=== PATIENT | female | born 1940 | race Caucasian/White ===

== ENCOUNTER 2016-11-03 14:04 | Inpatient (IN) | payer MEDICARE, OTHER ==
[~2016-11-03] VITALS: Ht 162.6 cm; Wt 83.6 kg
[2016-11-03 14:06] VITALS: BP 163/94; PULSE 92; RESP 24; TEMP 97.7; O2SAT 97
[2016-11-03] MEDS ORDERED: MORPHINE SULFATE 4 MG/ML INJ IM ONE (14:30)
--- NOTE | 2016-11-03 14:40 | PD ---
HPI Chief Complaint: Musculoskeletal Complaint Time Seen by Provider: 14:35 Travel History International Travel<30 days: No Contact w/Intl Traveler<30days: No Traveled to known affect area: No History of Present Illness HPI Patient is a 76-year-old female presenting to emergency for evaluation after she sustained a mechanical fall, injuring her face. Patient was playing miniature golf when she tripped on a curb. Patient states that she face planted , she did not attempt to brace herself during the fall with her hands. She complains of face pain, neck pain and head pain. She reports her pain as a 6 out of 10 and describes it as throbbing and aching. Patient also reports nosebleed and a cut on her inner lower lip. She denies any loss of consciousness, the fall was witnessed by her who is present. Patient does take 81 mg of aspirin daily. PFSH Past Medical History Hx Anticoagulant Therapy: Yes (ASA) Hypertension: Yes Social History Alcohol Use: No Tobacco Use: No Substance Use: No Allergies-Medications (Allergen,Severity, Reaction): Coded Allergies: Adhesives (Verified Allergy, Intermediate, RASH, 11/03/16) Penicillin (Verified Allergy, Intermediate, RASH, 11/03/16) Percocet (Verified Allergy, Unknown, NAUSEA, 11/03/16) Review of Systems Except as stated in HPI: all other systems reviewed are Neg Eyes: No: Blurred Vision, Visual changes HENT: Positive: Headaches, Nosebleed, Neck Pain Cardiovascular: No: Chest Pain or Discomfort Respiratory: No: Shortness of Breath Gastrointestinal: No: Nausea, Abdominal Pain Musculoskeletal: No: Myalgias Neurologic: No: Weakness, Dizziness, Syncope, Focal Abnormalities, Change in Mentation, Sensory Disturbance Physical Exam Narrative GENERAL: Developed, well-nourished, alert elderly female. Appears uncomfortable , in no acute distress. SKIN: Focused skin assessment warm/dry. Over the bridge of the nose bilaterally and over right eye lid. Ecchymosis on right proximal humerus, left breast. HEAD: Atraumatic. Normocephalic. EYES: Pupils equal and round. No scleral icterus. No injection or drainage. Lids are intact, no photophobia, no pain with movement of eyes. ENT: Positive nasal bleeding worse in the right and the left, no discharge. Mucous membranes pink and moist. No hematoma noted in her stools. NECK: Trachea midline. No JVD. CARDIOVASCULAR: Regular rate and rhythm. No murmur appreciated. RESPIRATORY: No accessory muscle use. Clear to auscultation. Breath sounds equal bilaterally. GASTROINTESTINAL: Abdomen soft, non-tender, nondistended. Hepatic and splenic margins not palpable. MUSCULOSKELETAL: No obvious deformities. No clubbing. No cyanosis. No edema. NEUROLOGICAL: Awake and alert. No obvious cranial nerve deficits. Motor grossly within normal limits. Normal speech. PSYCHIATRIC: Appropriate mood and affect; insight and judgment normal. Data Data Last Documented VS Vital Signs Date Time Temp Pulse Resp B/P Pulse Ox O2 Delivery O2 Flow Rate FiO2 11/03/16 14:06 97.7 92 24 163/[address] Brain W/O Iv Contrast(Rout) (11/03/16 ) Ct Facial Bones W/O Iv Cont (11/03/16 ) Morphine Inj (Morphine Inj) (11/03/16 14:30) Ct Cerv Spine W/O Contrast (11/03/16 ) Ice/Cold Pack (11/03/16 14:25) Ondansetron Inj (Zofran Inj) (11/03/16 15:30) Sodium Chlorid 0.9% 500 Ml Inj (Ns 500 M (11/03/16 15:30) Complete Blood Count With Diff (11/03/16 15:23) Basic Metabolic Panel (Bmp) (11/03/16 15:23) Act Partial Throm Time (Ptt) (11/03/16 15:23) Prothrombin Time / Inr (Pt) (11/03/16 15:23) Iv Access Insert/Monitor (11/03/16 15:23) Humerus (Min 2vws) (11/03/16 ) Chest, Single Ap (11/03/16 ) Admit Order (Ed Use Only) (11/03/16 15:51) Labs Laboratory Tests Test 11/03/16 15:30 White Blood Count 11.6 TH/MM3 Red Blood Count 3.55 MIL/MM3 Hemoglobin 11.6 GM/DL Hematocrit 35.7 % Mean Corpuscular Volume 100.6 FL Mean Corpuscular Hemoglobin 32.7 PG Mean Corpuscular Hemoglobin 32.5 % Concent Red Cell Distribution Width 12.8 % Platelet Count 182 TH/MM3 Mean Platelet Volume 8.7 FL Neutrophils (%) (Auto) 75.3 % Lymphocytes (%) (Auto) 15.5 % Monocytes (%) (Auto) 7.4 % Eosinophils (%) (Auto) 1.3 % Basophils (%) (Auto) 0.5 % Neutrophils # (Auto) 8.7 TH/MM3 Lymphocytes # (Auto) 1.8 TH/MM3 Monocytes # (Auto) 0.9 TH/MM3 Eosinophils # (Auto) 0.2 TH/MM3 Basophils # (Auto) 0.1 TH/MM3 CBC Comment DIFF FINAL Differential Comment Prothrombin Time 11.5 SEC Prothromb Time International 1.0 RATIO Ratio Activated Partial 22.5 SEC Thromboplast Time Sodium Level 139 MEQ/L Potassium Level 3.7 MEQ/L Chloride Level 103 MEQ/L Carbon Dioxide Level 25.7 MEQ/L Anion Gap 10 MEQ/L Blood Urea Nitrogen 22 MG/DL Creatinine 1.07 MG/DL Estimat Glomerular Filtration 50 ML/MIN Rate Random Glucose 156 MG/DL Calcium Level 8.8 MG/DL MDM Medical Decision Making Medical Screen Exam Complete: Yes Emergency Medical Condition: Yes Interpretation(s) Last Impressions Maxillofacial CT 11/03/16 0000 Signed Impressions: Service Date/Time: Thursday, November 03, 2016 14:54 - CONCLUSION: 1. Multifocal areas of subtle lytic bone destruction in the inferior calvarium and also the sphenoid bone and clivus. Differential diagnosis includes myeloma and metastatic disease. 2. Multiple facial bone fractures including nasal septum, bilateral nasal bones , bilateral maxillary sinuses with hemorrhage in both maxillary sinuses. 3. Abnormal soft tissue and calcification in the inferomedial left orbit. Differential diagnosis includes a focal area of hemorrhage or possibly chronic nasolacrimal duct disease. 4. Mucosal thickening in ethmoid air cells. Hypoplastic frontal sinus. Sphenoid sinus unremarkable. 5. Chronic appearing deformity of the left mandibular condyle possibly related to prior trauma or avascular necrosis. Casper Guzman MD Head CT 11/03/16 0000 Signed Impressions: Service Date/Time: Thursday, November 03, 2016 14:54 - CONCLUSION: 1. Small hemorrhagic contusion in the right frontal lobe associated with minimal subarachnoid hemorrhage and interhemispheric hemorrhage in the frontal region. There is a suspected 1 cm hemorrhage in the left basal ganglia in addition to dense basal ganglia calcifications. There is no mass effect or midline shift. 2. Anterior facial bone fractures with hemorrhage in the maxillary sinuses. See facial bone CT report. Casper Guzman MD Cervical Spine CT 11/03/16 0000 Signed Impressions: Service Date/Time: Thursday, November 03, 2016 14:54 - CONCLUSION: 1. Fracture through the base of the dens of C2 with about 4 mm of posterior and inferior displacement of the posterior cortex. No significant canal stenosis. 2. Hairline nondisplaced fracture right posterior arch of C1. 3. 1 cm soft tissue swelling anterior to the dens. Degenerative disc disease with minimal degenerative anterolisthesis of C4 on C5 and C6 on C7. Casper Guzman MD Vital Signs Date Time Temp Pulse Resp B/P Pulse Ox O2 Delivery O2 Flow Rate FiO2 11/03/16 14:06 97.7 92 24 163/94 97 Room Air Differential Diagnosis Contusion versus fracture versus sprain versus strain versus hemorrhage versus hematoma versus other Narrative Course 76-year-old female presenting to emergency for evaluation of facial contusions after sustaining a mechanical fall that occurred just prior to arrival. Patient 's vital signs are stable, patient is alert and oriented with no neurological deficits noted on exam. Imaging ordered and pending, pain medication order per my to any physician. IV access initiated, telemetry monitoring and continuous pulse oximetry placed. CT scan of the cervical spine shows fracture to the base of the dens of C2 with about 4 mm posterior and inferior displacement of the posterior cortex, no significant canal stenosis. Hairline nondisplaced fracture right posterior arch of C1. 1 cm soft tissue swelling anterior to the dens as well as degenerative disc disease with minimal direct degenerative anterolisthesis of C4 on C5 and C6 on C7. Upon notification of these fractures patient was emergently placed in a Adriana collar. CT scan of the brain small hemorrhagic contusion in the right frontal lobe associated with minimal subarachnoid hemorrhage and anterior hemispheric hemorrhage in the frontal region. There is a suspected 1 cm hemorrhage in the left basal ganglia in addition to dense basal ganglia calcifications. There is no mass effect or midline shift. Anterior facial bone fractures with hemorrhage. CT of the facial bones shows multifocal areas of subtle lytic bone destruction in the inferior calvarium and also the sphenoid bone and currently this. Differential includes myeloma and metastatic disease. Discussed with Dr. Salinas, trauma surgeon. He requested patient be admitted to his service in placed in [facility]. Discussed findings with Dr. Green who recommended patient be placed in [place] J collar and an MRI of the cervical spine. Orders placed. Discussed findings with Dr. Cruz. He recommended Nose precautions relayed to patient, no blowing her nose, she is advised just to tab, she was advised not to hold back or sneezes. MRI Results are pending. Diagnosis Primary Impression: Acute intracranial hemorrhage Additional Impressions: Facial bone fracture Qualified Code: S02.92XA - Closed fracture of facial bone, unspecified facial bone, initial encounter C2 cervical fracture Qualified Code: S12.100A - Closed displaced fracture of second cervical vertebra, unspecified fracture morphology, initial encounter Admitting Information Admitting Physician Requests: Admit Condition: Serious Arabella Shelleyfrederick MANSFIELD November 03, 2016 14:39
--- NOTE | 2016-11-03 15:23 | RADRPT ---
EXAM DATE/TIME: 11/03/2016 14:54 [facility] COMPARISON: No previous studies available for comparison. INDICATIONS : Pain after fall on face. RADIATION DOSE: 30.85 CTDIvol (mGy) MEDICAL HISTORY : Hypertension. SURGICAL HISTORY : None. ENCOUNTER: Initial ACUITY: 1 day PAIN SCALE: 5/10 LOCATION: cranial TECHNIQUE: Multiple contiguous axial images were obtained of the head. Using automated exposure control and adj ustment of the mA and/or kV according to patient size, radiation dose was kept as low as reasonably a chievable to obtain optimal diagnostic quality images. FINDINGS: There are anterior facial bone fractures, soft tissue swelling and hemorrhage in the paranasal sinuse s. See facial bone CT report. Within the brain there is a small area of hemorrhagic contusion in the right frontal lobe, mostly junior ear in appearance. There is also trace subdural hemorrhage in the interhemispheric region and probabl e trace subarachnoid hemorrhage as well. There are basal ganglia calcifications with an additional 1 cm hemorrhage in the left basal ganglia suspected posterior to the area of calcification. There is no mass effect or shift. No hydrocephalus. CONCLUSION: 1. Small hemorrhagic contusion in the right frontal lobe associated with minimal subarachnoid hemorrh age and interhemispheric hemorrhage in the frontal region. There is a suspected 1 cm hemorrhage in th e left basal ganglia in addition to dense basal ganglia calcifications. There is no mass effect or mi dline shift. 2. Anterior facial bone fractures with hemorrhage in the maxillary sinuses. See facial bone CT report . Casper Guzman MD on November 03, 2016 at 15:16 Board Certified Radiologist. This report was verified electronically.
--- NOTE | 2016-11-03 15:29 | RADRPT ---
EXAM DATE/TIME: 11/03/2016 14:54 [facility] COMPARISON: No previous studies available for comparison. INDICATIONS : Pain after fall on face. RADIATION DOSE: 19.61 CTDIvol (mGy) MEDICAL HISTORY : Hypertension. SURGICAL HISTORY : None. ENCOUNTER: Initial ACUITY: 1 day PAIN SCALE: 6/10 LOCATION: Bilateral neck TECHNIQUE: Volumetric scanning of the cervical spine was performed. Multiplanar reconstructions in the sagittal, coronal and oblique axial planes were performed. Using automated exposure control and adjustment o f the mA and/or kV according to patient size, radiation dose was kept as low as reasonably achievable to obtain optimal diagnostic quality images. FINDINGS: There is a fracture through the base of the dens with about 4.5 mm of inferior and posterior displace ment of the posterior cortex. No there's a questionable hairline fracture through the posterior arch of C1 on the right side. There is a minimal degenerative anterolisthesis of C4 on C5 and C6 on C7. No significant bony canal s tenosis. There is about 1 cm of soft tissue swelling anterior to the C2 fracture. CONCLUSION: 1. Fracture through the base of the dens of C2 with about 4 mm of posterior and inferior displacement of the posterior cortex. No significant canal stenosis. 2. Hairline nondisplaced fracture right posterior arch of C1. 3. 1 cm soft tissue swelling anterior to the dens. Degenerative disc disease with minimal degenerative anterolisthesis of C4 on C5 and C6 on C7. Casper Guzman MD on November 03, 2016 at 15:21 Board Certified Radiologist. This report was verified electronically.
[2016-11-03] MEDS ORDERED: ONDANSETRON HCL 4 MG/2 ML VIAL IV PUSH ONE (15:30)
[2016-11-03] MEDS ORDERED: SODIUM CHLORID 0.9% 500 ML INJ 500 ML IV ONE (15:30)
--- NOTE | 2016-11-03 15:37 | RADRPT ---
EXAM DATE/TIME: 11/03/2016 14:54 [facility] COMPARISON: No previous studies available for comparison. INDICATIONS : Pain after fall on face. RADIATION DOSE: 58.56 CTDIvol (mGy) MEDICAL HISTORY : None SURGICAL HISTORY : None. ENCOUNTER: Initial ACUITY: 1 day PAIN SCORE: 8/10 LOCATION: Bilateral facial TECHNIQUE: Volumetric scanning of the facial bones was performed. Using automated exposure control and adjustme nt of the mA and/or kV according to patient size, radiation dose was kept as low as reasonably achiev able to obtain optimal diagnostic quality images. FINDINGS: There are subtle lytic bony changes in the calvarium or at also at the base of the skull involving th e sphenoid bone and to a lesser extent other bony structures including the clivus. Differential diagn osis includes metastatic disease or myeloma. There are mildly displaced bilateral nasal bone fractures. They also mildly displaced fractures throu gh the lateral wall of right maxillary sinus and hairline fracture inferior left maxillary sinus with hemorrhage in both maxillary sinuses. There is an approximately 4 mm calcification in the inferior medial left orbit with similar surroundi ng soft tissue that could represent a small amount of hemorrhage or possibly occlusion of the left na solacrimal duct. There is some bone lysis along the posterior aspect of the left nasolacrimal duct. Mild displaced fracture noted of the nasal septum. CONCLUSION: 1. Multifocal areas of subtle lytic bone destruction in the inferior calvarium and also the sphenoid bone and clivus. Differential diagnosis includes myeloma and metastatic disease. 2. Multiple facial bone fractures including nasal septum, bilateral nasal bones, bilateral maxillary sinuses with hemorrhage in both maxillary sinuses. 3. Abnormal soft tissue and calcification in the inferomedial left orbit. Differential diagnosis incl udes a focal area of hemorrhage or possibly chronic nasolacrimal duct disease. 4. Mucosal thickening in ethmoid air cells. Hypoplastic frontal sinus. Sphenoid sinus unremarkable. 5. Chronic appearing deformity of the left mandibular condyle possibly related to prior trauma or bradford scular necrosis. Casper Guzman MD on November 03, 2016 at 15:29 Board Certified Radiologist. This report was verified electronically.
[2016-11-03 16:18] LABS: AUTOMATED NEUTROPHIL # 8.7 TH/MM3 (1.8-7.7); BASOPHIL # 0.1 TH/MM3 (0-0.2); BASOPHIL % 0.5 % (0.0-2.0); EOSINOPHIL # 0.2 TH/MM3 (0-0.4); EOSINOPHIL % 1.3 % (0.0-4.0); HEMATOCRIT 35.7 % (35.0-46.0); HEMO FLAGS DIFF FINAL; LYMPH % 15.5 % (9.0-44.0); LYMPHOCYTE # 1.8 TH/MM3 (1.0-4.8); MEAN CELL VOLUME 100.6 FL (80.0-100.0); MEAN CORPUSCULAR HEMOGLOBIN 32.7 PG (27.0-34.0); MEAN CORPUSCULAR HGB CONC 32.5 % (32.0-36.0); MONO % 7.4 % (0.0-8.0); NEUT % 75.3 % (16.0-70.0); PLATELET COUNT 182 TH/MM3 (150-450); RED BLOOD COUNT 3.55 MIL/MM3 (4.00-5.30); RED CELL DISTRIBUTION WIDTH 12.8 % (11.6-17.2); WHITE BLOOD COUNT 11.6 TH/MM3 (4.0-11.0)
--- NOTE | 2016-11-03 16:20 | PD ---
Physical Exam Date Seen by Provider: November 03, 2016 Time Seen by Provider: 15:00 Narrative I, Dr. Root, have reviewed the advance practice practitioner's documentation and am in agreement, met with the patient face to face, made the diagnosis, and the medical decision making was done by me. *My assessment and Findings: Patient seen and evaluated with PA, please see PA note for further details. She had tripped and fallen on a mini golf course and went face first, no loss of consciousness has significant bruising over her face. She was placed in a c-collar in the ER. CAT scans were ordered for further evaluation. Patient is alert, awake, oriented 3. She is conversant and is moving all 4 extremities. She walked in. Last [address] 11/03/16 Signed Impressions: Service Date/Time: Thursday, November 03, 2016 14:54 - CONCLUSION: 1. Multifocal areas of subtle lytic bone destruction in the inferior calvarium and also the sphenoid bone and clivus. Differential diagnosis includes myeloma and metastatic disease. 2. Multiple facial bone fractures including nasal septum, bilateral nasal bones , bilateral maxillary sinuses with hemorrhage in both maxillary sinuses. 3. Abnormal soft tissue and calcification in the inferomedial left orbit. Differential diagnosis includes a focal area of hemorrhage or possibly chronic nasolacrimal duct disease. 4. Mucosal thickening in ethmoid air cells. Hypoplastic frontal sinus. Sphenoid sinus unremarkable. 5. Chronic appearing deformity of the left mandibular condyle possibly related to prior trauma or avascular necrosis. Casper Guzman MD Head CT 11/03/16 Signed Impressions: Service Date/Time: Thursday, November 03, 2016 14:54 - CONCLUSION: 1. Small hemorrhagic contusion in the right frontal lobe associated with minimal subarachnoid hemorrhage and interhemispheric hemorrhage in the frontal region. There is a suspected 1 cm hemorrhage in the left basal ganglia in addition to dense basal ganglia calcifications. There is no mass effect or midline shift. 2. Anterior facial bone fractures with hemorrhage in the maxillary sinuses. See facial bone CT report. Casper Guzman MD Cervical Spine CT 11/03/16 Signed Impressions: Service Date/Time: Thursday, November 03, 2016 14:54 - CONCLUSION: 1. Fracture through the base of the dens of C2 with about 4 mm of posterior and inferior displacement of the posterior cortex. No significant canal stenosis. 2. Hairline nondisplaced fracture right posterior arch of C1. 3. 1 cm soft tissue swelling anterior to the dens. Degenerative disc disease with minimal degenerative anterolisthesis of C4 on C5 and C6 on C7. Casper Guzman MD Patient has significant C-spine fracture in C1 and C2 with some mild displacement. CTA of the brain shows acute intracranial bleeding. See the facial bones shows several facial bone fractures. Case was discussed with Dr. Green who came in to see the patient in the ER and has requested a [place] J collar and consult to him with ICU placement. Case was discussed with Dr. Salinas who agrees to admit the patient ISC. Case was also discussed with Dr. Cruz who plans to see the patient as well regarding facial fractures. Aggregate critical care time was 25 minutes. Time to perform other separately billable procedures was not included in the critical care time. My time did not include minutes spent treating any other patients simultaneously or on activities that did not directly contribute to the patient's treatment. The services I provided to this patient were to treat and/or prevent clinically significant deterioration that could result in: Worsening intracranial bleeding , disability, I provided critical care services requiring my management, as noted below: Chart data review, documentation time, medication orders and management, vital sign assessments/reviewing monitor data, ordering and reviewing lab tests, ordering and interpreting/reviewing x-rays and diagnostic studies, care of the patient and discussion of the patient with the admitting physicians. Data Data Last Documented VS Vital Signs Date Time Temp Pulse Resp B/P Pulse Ox O2 Delivery O2 Flow Rate FiO2 11/03/16 14:06 97.7 92 24 163/[address] Brain W/O Iv Contrast(Rout) (11/03/16 ) Ct Facial Bones W/O Iv Cont (11/03/16 ) Morphine Inj (Morphine Inj) (11/03/16 14:30) Ct Cerv Spine W/O Contrast (11/03/16 ) Ice/Cold Pack (11/03/16 14:25) Ondansetron Inj (Zofran Inj) (11/03/16 15:30) Sodium Chlorid 0.9% 500 Ml Inj (Ns 500 M (11/03/16 15:30) Complete Blood Count With Diff (11/03/16 15:23) Basic Metabolic Panel (Bmp) (11/03/16 15:23) Act Partial Throm Time (Ptt) (11/03/16 15:23) Prothrombin Time / Inr (Pt) (11/03/16 15:23) Iv Access Insert/Monitor (11/03/16 15:23) Humerus (Min 2vws) (11/03/16 ) Chest, Single Ap (11/03/16 ) Admit Order (Ed Use Only) (11/03/16 15:51) MDM Medical Record Reviewed: Yes Supervised Visit with RITA: Yes Diagnosis Primary Impression: Acute intracranial hemorrhage Additional Impressions: C2 cervical fracture Facial bone fracture Admitting Information Admitting Physician Requests: Admit Naeem Root MD November 03, 2016 16:20
[2016-11-03 16:30] LABS: APTT (PATIENT) 22.5 SEC (24.3-30.1); PROTHROMBIN TIME - PATIENT 11.5 SEC (9.8-11.6)
[2016-11-03 16:50] LABS: BICARBONATE 25.7 MEQ/L (21.0-32.0); POTASSIUM 3.7 MEQ/L (3.5-5.1)
[2016-11-03] MEDS ORDERED: MISCELLANEOUS NURSING INFORMATION XX SCH (17:00)
[2016-11-03] MEDS ORDERED: SODIUM CHLORIDE 0.9% FLUSH 10 ML FLUSH IV FLUSH PRN (17:00)
[2016-11-03] MEDS ORDERED: MAGNESIUM HYDROXIDE SUSP 30 ML CUP PO PRN (17:00)
[2016-11-03] MEDS: SODIUM CHLOR 0.9% 1000 ML INJ 1,000 ML IV SCH (17:00)
[2016-11-03] MEDS ORDERED: CHLORHEXIDINE GLUCONATE 2 % 1 PACK (2 CLOTHS) TOP PRN (17:00)
--- NOTE | 2016-11-03 17:01 | PD.CONS ---
[facility] Service Neurosurg Consult Requested By Dr Landry Reason for Consult C21 fracture Primary Care Physician Non-Staff History of Present Illness this is a 76-year-old female brought to [place] emergency for evaluation after she sustained a fall, injuring her face. Apparently she was playing mini golf when she tripped on a curb. She face planted, during her fall she did not attempt to brace herself during the fall with her hands. No loss of consciousness. No seizure activity. No tongue biting. No incontinence of stool or urine. She developed immediate onset of neck pain. She now reports face pain, neck pain and head pain 7/10. She reports her pain as a 7 out of 10 and describes it as throbbing and aching. Patient also reports nosebleed and a cut on her inner lower lip. The fall was witnessed by her who is present. Patient does take 81 mg of aspirin daily. She denies any focal motor weakness. She denies any sensory loss. No incontinence of stool or urine. CT of the brain showed evidence of cerebral contusions, a possible basal ganglia hemorrhage, craniofacial fractures. CT of the cervical spine showed a C2 and C1 fracture. Neurosurgical consultation was requested Review of Systems Constitutional: DENIES: Diaphoretic episodes, Fatigue, Fever, Weight gain, Weight loss, Chills, Dizziness, Change in appetite, Night Sweats Endocrine: DENIES: Abnorml menstrual pattern, Heat/cold intolerance, Polydipsia , Polyuria, Polyphagia Eyes: COMPLAINS OF: Eye inflammation, DENIES: Blurred vision, Diplopia, Eye pain, Vision loss, Photosensitivity, Double Vision Ears, nose, mouth, throat: DENIES: Tinnitus, Hearing loss, Vertigo, Nasal discharge, Oral lesions, Throat pain, Hoarseness, Ear Pain, Running Nose, Epistaxis, Sinus Pain, Toothache, Odynophagia Respiratory: DENIES: Apneas, Cough, Snoring, Wheezing, Hemoptysis, Sputum production, Shortness of breath Cardiovascular: DENIES: Chest pain, Palpitations, Syncope, Dyspnea on Exertion , PND, Lower Extremity Edema, Orthopnea, Claudication Gastrointestinal: DENIES: Abdominal pain, Black stools, Bloody stools, Constipation, Diarrhea, Nausea, Vomiting, Difficulty Swallowing, Anorexia Genitourinary: DENIES: Abnormal vaginal bleeding, Dysmenorrhea, Dyspareunia, Sexual dysfunction, Urinary frequency, Urinary incontinence, Urgency, Hematuria , Dysuria, Nocturia, Vaginal discharge Musculoskeletal: COMPLAINS OF: Neck pain, DENIES: Joint pain, Muscle aches, Stiffness, Joint Swelling, Back pain Integumentary: DENIES: Abnormal pigmentation, Pruritus, Rash, Nail changes, Breast masses, Breast skin changes, Nipple discharge Hematologic/lymphatic: DENIES: Bruising, Lymphadenopathy Immunologic/allergic: DENIES: Eczema, Urticaria Neurologic: COMPLAINS OF: Headache, DENIES: Abnormal gait, Localized weakness , Paresthesias, Seizures, Speech Problems, Tremor, Poor Balance Psychiatric: DENIES: Anxiety, Confusion, Mood changes, Depression, Hallucinations, Agitation, Suicidal Ideation, Homicidal Ideation, Delusions Past Family Social History Allergies: Coded Allergies: Adhesives (Verified Allergy, Intermediate, RASH, 11/03/16) Penicillin (Verified Allergy, Intermediate, RASH, 11/03/16) Percocet (Verified Allergy, Unknown, NAUSEA, 11/03/16) Social History Alcohol Use: No Tobacco Use: No Substance Use: No Physical Exam Vital Signs Vital Signs Date Time Temp Pulse Resp B/P Pulse Ox O2 Delivery O2 Flow Rate FiO2 11/03/16 14:06 97.7 92 24 163/94 97 Room Air Physical Exam The patient is alert, awake and oriented to time, place and person. Speech is fluent. GCS 15 Cranial nerve examination demonstrates the pupils to be equal, round, and reactive to light. Extra-ocular movements are intact. Facial motor and sensory function are normal and symmetrical. Gross hearing is intact, bilaterally. The uvula is midline and elevates symmetrically with the soft palate. Sternocleidomastoid and trapezius muscles have normal and symmetrical strength. Other cranial nerves are intact. Cervical spine is supported by a [place] collar Muscle testing reveals normal bulk and tone overall without rigidity, spasticity , fasciculations, or atrophy. Muscle strength is 5/5 in all muscle groups of both upper extremities including deltoid, biceps, triceps, brachioradialis, wrist extension and band lining bander. In the lower extremities, strength is 5/5 in both iliopsoas, quadriceps, hamstrings, plantar flexion, dorsiflexion, and extensor hallicus longus. Sensory examination is intact to light touch and sharp/dull discrimination in both the upper and lower extremities, symmetrically. Deep tendon reflexes are 2+ and symmetrical in the biceps, triceps, and brachioradialis, bilaterally, in the upper extremities. In the lower extremities , the patellar and Achilles are 2+, bilaterally. There is a bilateral plantar flexion response. Hoffmanns sign is negative. There is no clonus or other abnormal reflexes noted. Cerebellar examination is intact to [id number] test, rapid rhythmic alternating motion. There is no dysmetria, dysdiadochokinesia, truncal ataxia, or tremor. Laboratory Laboratory Tests Test 11/03/16 15:30 White Blood Count 11.6 Red Blood Count 3.55 Hemoglobin 11.6 Hematocrit 35.7 Mean Corpuscular Volume 100.6 Mean Corpuscular Hemoglobin 32.7 Mean Corpuscular Hemoglobin 32.5 Concent Red Cell Distribution Width 12.8 Platelet Count 182 Mean Platelet Volume 8.7 Neutrophils (%) (Auto) 75.3 Lymphocytes (%) (Auto) 15.5 Monocytes (%) (Auto) 7.4 Eosinophils (%) (Auto) 1.3 Basophils (%) (Auto) 0.5 Neutrophils # (Auto) 8.7 Lymphocytes # (Auto) 1.8 Monocytes # (Auto) 0.9 Eosinophils # (Auto) 0.2 Basophils # (Auto) 0.1 CBC Comment DIFF FINAL Differential Comment Prothrombin Time 11.5 Prothromb Time International 1.0 Ratio Activated Partial 22.5 Thromboplast Time Sodium Level 139 Potassium Level 3.7 Chloride Level 103 Carbon Dioxide Level 25.7 Anion Gap 10 Blood Urea Nitrogen 22 Creatinine 1.07 Estimat Glomerular Filtration 50 Rate Random Glucose 156 Calcium Level 8.8 Result Diagram: 11/03/16 1530 11/03/16 1530 Imaging Last Impressions Maxillofacial CT 11/03/16 0000 Signed Impressions: Service Date/Time: Thursday, November 03, 2016 14:54 - CONCLUSION: 1. Multifocal areas of subtle lytic bone destruction in the inferior calvarium and also the sphenoid bone and clivus. Differential diagnosis includes myeloma and metastatic disease. 2. Multiple facial bone fractures including nasal septum, bilateral nasal bones , bilateral maxillary sinuses with hemorrhage in both maxillary sinuses. 3. Abnormal soft tissue and calcification in the inferomedial left orbit. Differential diagnosis includes a focal area of hemorrhage or possibly chronic nasolacrimal duct disease. 4. Mucosal thickening in ethmoid air cells. Hypoplastic frontal sinus. Sphenoid sinus unremarkable. 5. Chronic appearing deformity of the left mandibular condyle possibly related to prior trauma or avascular necrosis. Casper Guzman MD Head CT 11/03/16 0000 Signed Impressions: Service Date/Time: Thursday, November 03, 2016 14:54 - CONCLUSION: 1. Small hemorrhagic contusion in the right frontal lobe associated with minimal subarachnoid hemorrhage and interhemispheric hemorrhage in the frontal region. There is a suspected 1 cm hemorrhage in the left basal ganglia in addition to dense basal ganglia calcifications. There is no mass effect or midline shift. 2. Anterior facial bone fractures with hemorrhage in the maxillary sinuses. See facial bone CT report. Casper Guzman MD Cervical Spine CT 11/03/16 0000 Signed Impressions: Service Date/Time: Thursday, November 03, 2016 14:54 - CONCLUSION: 1. Fracture through the base of the dens of C2 with about 4 mm of posterior and inferior displacement of the posterior cortex. No significant canal stenosis. 2. Hairline nondisplaced fracture right posterior arch of C1. 3. 1 cm soft tissue swelling anterior to the dens. Degenerative disc disease with minimal degenerative anterolisthesis of C4 on C5 and C6 on C7. Casper Guzman MD Attending Statement I reviewed her clinical and radiological studies. neuro checks in a serial fashion. Placement of ICP monitor is not indicated at this time. Non surgical management. Folllow up CT in AM C1 and C2 fracture. Likely any stable. Brace the spine with the [place] J collar. Obtain MRI cervical spine. I have discussed with the patient and with her the alternative treatment as she likely will need stabilization of the cervical spine with a halo brace. We will defer further recommendations to upon completion of her workup Respiratory. pulmonary toilette, nasotracheal suction, and breathing treatments with nebulizers. PT and OT eval Nutrition. Oral diet Renal. monitor closely urine output, BUN and creatinine Endocrine. Monitor serial Acu checks and SSI for tight control ID monitor for signs of infection Protonix for stress ulcer prophylaxis Didier hose and SCD's for DVT prophylaxis Jean Claude Green MD November 03, 2016 17:01
--- NOTE | 2016-11-03 17:17 | RADRPT ---
EXAM DATE/TIME: 11/03/2016 15:53 [facility] COMPARISON: No previous studies available for comparison. INDICATIONS : Fall. MEDICAL HISTORY : None. SURGICAL HISTORY : None. ENCOUNTER: Initial ACUITY: 1 day PAIN SCORE: 0/10 LOCATION: Right humerus FINDINGS: Two view examination of the right humerus demonstrates no evidence of fracture or dislocation. Bony mineralization is normal. The soft tissue structures are intact. CONCLUSION: Unremarkable examination of the right humerus. Casper Guzman MD on November 03, 2016 at 17:15 Board Certified Radiologist. This report was verified electronically.
--- NOTE | 2016-11-03 17:20 | RADRPT ---
EXAM DATE/TIME: 11/03/2016 15:57 [facility] COMPARISON: No previous studies available for comparison. INDICATIONS : Fall. MEDICAL HISTORY : None. SURGICAL HISTORY : None. ENCOUNTER: Initial ACUITY: 1 day PAIN SCORE: 0/10 LOCATION: Bilateral chest FINDINGS: A single view of the chest demonstrates minimal basilar airspace disease. No effusion. No pneumothora x. Heart size upper limits normal. Mildly tortuous aorta. CONCLUSION: 1. Minimal basilar atelectasis. No pneumothorax. Casper Guzman MD on November 03, 2016 at 17:16 Board Certified Radiologist. This report was verified electronically.
[2016-11-03] MEDS: HYDROmorphone HCL 2 MG TAB PO PRN (17:56)
[2016-11-03 18:00] VITALS: BP 146/74; PULSE 75; RESP 18; O2SAT 95
--- NOTE | 2016-11-03 18:09 | RADRPT ---
EXAM DATE/TIME: 11/03/2016 16:52 [facility] COMPARISON: No previous studies available for comparison. INDICATIONS : Trauma. Abnormal CT. MEDICAL HISTORY : Carcinoma, breast. SURGICAL HISTORY : Appendectomy. ENCOUNTER: Initial ACUITY: 1 day PAIN SCORE: 7/10 LOCATION: Paraspinal TECHNIQUE: Multiplanar, multisequence MRI examination of the cervical spine was performed. FINDINGS: There is a fracture of the C2 vertebra at the base of the dens with about 4 mm of posterior displacem ent and mild prevertebral soft tissue swelling. On MRI no other fractures are identified. There is no canal stenosis. There is a minimal degenerative anterolisthesis of C6 on C7. Mild broad-b ased posterior disc osteophyte complexes present at C4-5-6-7 without stenosis. No cord signal abnorma lities. No evidence for cord contusion. No epidural hematoma. CONCLUSION: 1. C2 fracture at the base of the dens with about 4 mm of posterior displacement. 2. No canal stenosis within the cervical spine. No evidence for cord edema or cord contusion. 3. Moderate degenerative disc disease of the lower cervical spine with a minimal degenerative anterol isthesis of C6 on C7. 4. No other fractures identified on MRI. Casper Guzman MD on November 03, 2016 at 18:02 Board Certified Radiologist. This report was verified electronically.
[2016-11-03] MEDS ORDERED: ATROPINE SULFATE 1 MG/10 ML SYRINGE ONE (19:10)
[2016-11-03 19:18] LABS: BACTERIA, URINE RARE /hpf; BLOOD, URINE NEG (NEG); COMMENT (UR) CULT NOT INDICATED; CULTURE IF INDICATED CULT NOT INDICATED; GLUCOSE,URINE NEG (NEG); HYALINE CAST, URINE 7 /lpf (RARE); KETONE, URINE 40 mg/dL (NEG); MUCUS URINE FEW /lpf (OCC); NITRITE,URINE NEG (NEG); URINE COLOR YELLOW (YELLW/STRAW)
[2016-11-03] MEDS: DOCUSATE SODIUM 100 MG CAP PO SCH ×2 (19:33→19:50)
[2016-11-03] MEDS: PANTOPRAZOLE SODIUM 40 MG VIAL IVP SCH (19:48)
[2016-11-03] MEDS: MORPHINE SULFATE 4 MG/ML INJ IV PRN (19:49)
[2016-11-03] MEDS: ONDANSETRON HCL 4 MG/2 ML VIAL IV PRN (19:49)
[2016-11-03 20:00] VITALS: BP 143/65; PULSE 72; PULSE 76; RESP 15; TEMP 97.8; O2SAT 100
--- NOTE | 2016-11-03 20:18 | MB ---
cc: DREW CRUZ DMD DATE OF CONSULTATION 11/03/2016 REASON FOR CONSULTATION Facial fractures. HISTORY OF THE PRESENT ILLNESS This is a 76-year-old female who earlier today was playing miniature golf and she reports that she tripped on a curb and she fell hitting her face. Denies any loss of consciousness. She is alert, awake and oriented x3 in no acute distress. No complaints now at this time. Denies any fever, chills, nausea, vomiting, any shortness of breath or any difficulty breathing. PAST MEDICAL HISTORY 1. Cancer left breast. 2. Hypertension. 3. History of pulmonary embolism secondary to left lower extremity surgery. PAST SURGICAL HISTORY 1. Left lower extremity surgery. 2. Left breast lumpectomy with one axillary node removal. ALLERGIES PENICILLIN, RASH. ADHESIVE, RASH AND PERCOCET NAUSEA. SOCIAL HISTORY Denies any tobacco, any illicit drug use. Has wine with dinner every day. PHYSICAL EXAMINATION VITAL SIGNS: Temperature 97.7, pulse is 75, respiration 18, blood pressure 146/70 with oxygen saturation of 95%. HEAD AND NECK: The patient has a C-collar that is on right now. Pupils equal, round, reactive to light and accommodation. Extraocular movements are intact. She has an abrasion on the right supraorbital region which is hemostatic, which is clotted off. She has bilateral facial edema, nasal edema. Very minimal oozing from the right nares. But no gross active heme. Facial bones, nasal bones have been palpated. No gross tenderness that is noted. Intraorally she wears dentures. Facial bones is stable. No false point of motion of the maxilla or the mandible. No active heme noted intraorally. Some bruising noted on the lower lip, with a small tear, laceration about 0.5 cm on the lower lip. The wound is well approximated though. No active heme noted. IMAGING CT scan of the facial bones shows a nasal bone fracture not significantly displaced. Fluid on the right maxillary sinus greater on the left almost complete opacification. Bilateral maxillary sinus fractures, but the blood that is greater on the right maxillary sinus than on the left. Nondisplaced. She also appears to have a foreign body on the left inferior orbital region, the medial aspect. The patient reports that it has been there for long time and there has been no treatment, it is some calcification. She is aware of this. LABORATORY DATA White count is 11.6, with H&H 11.6 and 35.7 with platelets of 182. PT is 7.5, INR is 1.0 with a PTT of 22.5. ASSESSMENT There is a 76-year-old female who was playing miniature golf and tripped on a curb and fell with nondisplaced bilateral maxillary sinus fractures and bilateral nasal bone fractures. She has edema on her face and her nose. At this time there is no surgical intervention that is needed. We will have the patient follow up in our office when discharged, just reevaluation. Put the patient on sinus precautions. The small little cut / laceration on the inside lower lip is stable. Does not need any surgical intervention at this time. Also noted this opacity on the left inferior medial orbital region. The patient reports that it has been there for very long time, followed by many physicians / specialists and there was no treatment rendered nor was needed to be rendered. She is aware of it and asymptomatic. Also a head CT scan, hemorrhagic contusion of frontal lobe. Subarachnoid hemorrhage. Cervical spine, she has got a fracture through C2, posterior arch of C1 and C2 fractures. Drew Cruz DMD RRT/HE /7:16 PM :49 PM [id number]
[2016-11-03 22:00] VITALS: PULSE 72
[2016-11-04] VITALS (13 sets, daily range): BP systolic 144–177; BP diastolic 65–78; PULSE 58–83; RESP 13–16; TEMP 97.8–98.6; O2SAT 96–100
[2016-11-04] MEDS: HYDROmorphone HCL 2 MG TAB PO PRN ×5 (00:45→23:20)
[2016-11-04] MEDS: MORPHINE SULFATE 4 MG/ML INJ IV PRN ×4 (02:16→20:46)
[2016-11-04] MEDS: SODIUM CHLOR 0.9% 1000 ML INJ 1,000 ML IV SCH ×3 (03:00→23:00)
[2016-11-04] MEDS: CHLORHEXIDINE GLUCONATE 2 % 1 PACK (2 CLOTHS) TOP SCH (03:15)
[2016-11-04 04:11] LABS: AUTOMATED NEUTROPHIL # 6.2 TH/MM3 (1.8-7.7); BASOPHIL % 0.1 % (0.0-2.0); HEMATOCRIT 31.5 % (35.0-46.0); HEMO FLAGS DIFF FINAL; LYMPH % 11.2 % (9.0-44.0); LYMPHOCYTE # 0.9 TH/MM3 (1.0-4.8); MEAN CELL VOLUME 100.8 FL (80.0-100.0); MEAN CORPUSCULAR HEMOGLOBIN 33.8 PG (27.0-34.0); MEAN CORPUSCULAR HGB CONC 33.6 % (32.0-36.0); MONO % 7.7 % (0.0-8.0); PLATELET COUNT 147 TH/MM3 (150-450); RED BLOOD COUNT 3.13 MIL/MM3 (4.00-5.30); RED CELL DISTRIBUTION WIDTH 12.9 % (11.6-17.2); WHITE BLOOD COUNT 7.7 TH/MM3 (4.0-11.0)
[2016-11-04 04:33] LABS: ALT (GPT) 36 U/L (10-53); ANION GAP 8 MEQ/L (5-15); AST (GOT) 24 U/L (15-37); BICARBONATE 26.5 MEQ/L (21.0-32.0); BLOOD UREA NITROGEN 19 MG/DL (7-18); CHLORIDE 105 MEQ/L (98-107); GLOMERULAR FILTRATION RATE 66 ML/MIN (>89); POTASSIUM 4.3 MEQ/L (3.5-5.1); SODIUM (NA) 139 MEQ/L (136-145)
[2016-11-04 04:36] LABS: ALKALINE PHOSPHATASE 60 U/L (45-117); TOTAL BILIRUBIN ADULT 0.5 MG/DL (0.2-1.0)
[2016-11-04] MEDS: ONDANSETRON HCL 4 MG/2 ML VIAL IV PRN ×2 (08:13→20:47)
--- NOTE | 2016-11-04 12:19 | OTSOAPIP ---
TIME SESSION COMPLETED: AM TREATMENT TIME: 0 MINS. CHART REVIEWED. INTERDISCIPLINARY COMMUNICATION: NURSING REQUESTED TO HOLD TREATMENT TODAY DUE TO UNSTABLE CERVICAL FRACTURE. PT IS WAITING FOR HALO PLACEMENT. PLAN: WILL SEE PT NEXT TREATMENT DAY Therapist: ALEXIS JIMENEZ/Pablo Signature on file
--- NOTE | 2016-11-04 16:08 | HHI.CCPN ---
Subjective Brief History 76-year-old female fell will play mini golf face forward. Patient is awake and alert on arrival Workup reveals Cerebral right frontal contusion with subarachnoid hemorrhage and some hemorrhage around basal ganglia C1 and C2 fracture Extensive facial fractures 24 Hour Review/Hospital Course Neurologically patient is fully intact she is awake alert and oriented Multiple bruises and swelling over the face and patient's has some degree of photophobia C-collar is in place and according to neurosurgery plan is to place a halo Objective Vital Signs Date Time Temp Pulse Resp B/P Pulse Ox O2 Delivery O2 Flow Rate FiO2 11/04/16 15:57 22 11/04/16 14:00 71 11/04/16 12:00 98.6 159/68 100 11/04/16 07:00 Nasal Cannula 2.00 Intake and Output 11/03/16 11/03/16 11/04/16 08:00 16:00 00:00 Intake Total 306 ml Output Total 375 ml Balance -69 ml Result Diagram: 11/04/16 0330 11/04/16 0330 Exam [employer] Patient is awake alert and oriented and neurologically fully intact Pupils equal reactive there is no lateralization Hemodynamic/Cardiac Hemodynamically stable Pulmonary/Respiratory Bilateral breath sounds Abdomen/GI Nutrition Abdomen is soft patient is hungry Assessment and Plan Attestation For halo and transfer to floor The exam, history, and the medical decision-making described in the above note were completed with the assistance of the mid-level provider. I reviewed and agree with the findings presented. I attest that I had a [id number] encounter with the patient on the same day, and personally performed and documented my assessment and findings in the medical record. Critical care time 42 minutes. Juarez Clark MD November 04, 2016 16:08
--- NOTE | 2016-11-04 16:26 | HHI.NSPN ---
(Trent Muniz) History Chief Complaint: Neck pain and headache. (Trent Muniz) Interval History this is a 76-year-old female brought to [facility] emergency for evaluation after she sustained a fall, injuring her face. Apparently she was playing mini golf when she tripped on a curb. She face planted, during her fall she did not attempt to brace herself during the fall with her hands. No loss of consciousness. No seizure activity. No tongue biting. No incontinence of stool or urine. She developed immediate onset of neck pain. She now reports face pain, neck pain and head pain 7/10. She reports her pain as a 7 out of 10 and describes it as throbbing and aching. Patient also reports nosebleed and a cut on her inner lower lip. The fall was witnessed by her who is present. Patient does take 81 mg of aspirin daily. She denies any focal motor weakness. She denies any sensory loss. No incontinence of stool or urine. CT of the brain showed evidence of cerebral contusions, a possible basal ganglia hemorrhage, craniofacial fractures. CT of the cervical spine showed a C2 and C1 fracture. Neurosurgical consultation was requested. 11/04/16: Pt awake and alert. Complains of headache, facial pain, neck pain. No radiculopathy in UEs. No paresthesias in UEs. (Trent Muniz) Review of Systems General: Negative for: fever, chills, insomnia Respiratory: Negative for: shortness of breath, cough, sputum Cardiovascular: Negative for: chest pain Gastrointestinal: Negative for: nausea, vomitting, diarrhea, constipation ( Trent Muniz) Exam Results Vital Signs Date Time Temp Pulse Resp B/P Pulse Ox O2 Delivery O2 Flow Rate FiO2 11/04/16 16:00 98.2 67 14 149/75 97 11/04/16 07:00 Nasal Cannula 2.00 Intake and Output 11/03/16 11/03/16 11/04/16 08:00 16:00 00:00 Intake Total 306 ml Output Total 375 ml Balance -69 ml (Trent Muniz) Physical Examination Resp: CTA bilaterally Heart: NSR no murmurs Abd: Soft positive bs Skin: Ecchymosis and edema face Muscle: Moves all 4 extremities with good strength. 5/5 in UEs. [place] J cervical collar in place. Neuro: Pt awake and alert. Follows commands well. Speech appropriate. Sensation intact in extremities. (Trent Muniz) Lab, Micro, Other Results Last Impressions Maxillofacial CT 11/03/16 Signed Impressions: Service Date/Time: Thursday, November 03, 2016 14:54 - CONCLUSION: 1. Multifocal areas of subtle lytic bone destruction in the inferior calvarium and also the sphenoid bone and clivus. Differential diagnosis includes myeloma and metastatic disease. 2. Multiple facial bone fractures including nasal septum, bilateral nasal bones , bilateral maxillary sinuses with hemorrhage in both maxillary sinuses. 3. Abnormal soft tissue and calcification in the inferomedial left orbit. Differential diagnosis includes a focal area of hemorrhage or possibly chronic nasolacrimal duct disease. 4. Mucosal thickening in ethmoid air cells. Hypoplastic frontal sinus. Sphenoid sinus unremarkable. 5. Chronic appearing deformity of the left mandibular condyle possibly related to prior trauma or avascular necrosis. Casper Guzman MD Humerus X-Ray 11/03/16 Signed Impressions: Service Date/Time: Thursday, November 03, 2016 15:53 - CONCLUSION: Unremarkable examination of the right humerus. Casper Guzman MD Head CT 11/03/16 Signed Impressions: Service Date/Time: Thursday, November 03, 2016 14:54 - CONCLUSION: 1. Small hemorrhagic contusion in the right frontal lobe associated with minimal subarachnoid hemorrhage and interhemispheric hemorrhage in the frontal region. There is a suspected 1 cm hemorrhage in the left basal ganglia in addition to dense basal ganglia calcifications. There is no mass effect or midline shift. 2. Anterior facial bone fractures with hemorrhage in the maxillary sinuses. See facial bone CT report. Casper Guzman MD Chest X-Ray 11/03/16 Signed Impressions: Service Date/Time: Thursday, November 03, 2016 15:57 - CONCLUSION: 1. Minimal basilar atelectasis. No pneumothorax. Casper Guzman MD Cervical Spine MRI 11/03/16 Signed Impressions: Service Date/Time: Thursday, November 03, 2016 16:52 - CONCLUSION: 1. C2 fracture at the base of the dens with about 4 mm of posterior displacement. 2. No canal stenosis within the cervical spine. No evidence for cord edema or cord contusion. 3. Moderate degenerative disc disease of the lower cervical spine with a minimal degenerative anterolisthesis of C6 on C7. 4. No other fractures identified on MRI. Casper Guzman MD Cervical Spine CT 11/03/16 0000 Signed Impressions: Service Date/Time: Thursday, November 03, 2016 14:54 - CONCLUSION: 1. Fracture through the base of the dens of C2 with about 4 mm of posterior and inferior displacement of the posterior cortex. No significant canal stenosis. 2. Hairline nondisplaced fracture right posterior arch of C1. 3. 1 cm soft tissue swelling anterior to the dens. Degenerative disc disease with minimal degenerative anterolisthesis of C4 on C5 and C6 on C7. Casper Guzman MD Laboratory Tests Test 11/03/16 11/04/16 17:40 03:30 Urine Color YELLOW Urine Turbidity CLEAR Urine pH 5.0 Urine Specific [place] 1.020 Urine Protein NEG mg/dL Urine Glucose (UA) NEG mg/dL Urine Ketones 40 mg/dL Urine Occult Blood NEG Urine Nitrite NEG Urine Bilirubin NEG Urine Urobilinogen LESS THAN 2.0 MG/DL Urine Leukocyte Esterase NEG Urine RBC 9 /hpf Urine WBC 1 /hpf Urine Bacteria RARE /hpf Urine Hyaline Casts 7 /lpf Urine Mucus FEW /lpf Microscopic Urinalysis Comment CULT NOT INDICATED White Blood Count 7.7 TH/MM3 Red Blood Count 3.13 MIL/MM3 Hemoglobin 10.6 GM/DL Hematocrit 31.5 % Mean Corpuscular Volume 100.8 FL Mean Corpuscular Hemoglobin 33.8 PG Mean Corpuscular Hemoglobin 33.6 % Concent Red Cell Distribution Width 12.9 % Platelet Count 147 TH/MM3 Mean Platelet Volume 8.6 FL Neutrophils (%) (Auto) 81.0 % Lymphocytes (%) (Auto) 11.2 % Monocytes (%) (Auto) 7.7 % Eosinophils (%) (Auto) 0.0 % Basophils (%) (Auto) 0.1 % Neutrophils # (Auto) 6.2 TH/MM3 Lymphocytes # (Auto) 0.9 TH/MM3 Monocytes # (Auto) 0.6 TH/MM3 Eosinophils # (Auto) 0.0 TH/MM3 Basophils # (Auto) 0.0 TH/MM3 CBC Comment DIFF FINAL Differential Comment Sodium Level 139 MEQ/L Potassium Level 4.3 MEQ/L Chloride Level 105 MEQ/L Carbon Dioxide Level 26.5 MEQ/L Anion Gap 8 MEQ/L Blood Urea Nitrogen 19 MG/DL Creatinine 0.84 MG/DL Estimat Glomerular Filtration 66 ML/MIN Rate Random Glucose 152 MG/DL Calcium Level 8.3 MG/DL Total Bilirubin 0.5 MG/DL Aspartate Amino Transf 24 U/L (AST/SGOT) Alanine Aminotransferase 36 U/L (ALT/SGPT) Alkaline Phosphatase 60 U/L Total Protein 6.1 GM/DL Albumin 3.2 GM/DL 11/03/16 11/03/16 11/04/16 15:00 23:00 07:00 Intake Total 306 ml Output Total 375 ml Balance -69 ml Intake IV Total 306 ml Output Urine Total 375 ml (Trent Muniz) Medical Decision Making Impression and Plan A: 76 y/o FM with C1 and C2 fracture P: Continue with pain control Continue with cervical collar. Pt will need halo placement. (Trent Muniz) Attending Statement The exam, history, and the medical decision-making described in the above note were completed with the assistance of the mid-level provider. I reviewed and agree with the findings presented. I attest that I had a [id number] encounter with the patient on the same day, and personally performed and documented my assessment and findings in the medical record. She has a type II posteriorly displaced the dense relative to the body C2 odontoid fracture with a questionable Right C1 Posterior Arch of Fracture Versus a Vascular Channel only one axial image. She has also suffered from traumatic brain injury with the contusions and small subarachnoid hemorrhage. She is currently on bedrest with cervical collar in place. Follow-up CT scan of the head tomorrow morning and if the this areas of contusions are stable and we will place her in a halo with close reduction if possible of the C2 fracture. Discussed with the patient and . (Clyde Mcmahon MD) Trent Muniz November 04, 2016 16:26 Clyde Mcmahon MD November 04, 2016 18:17
[2016-11-04] MEDS: PANTOPRAZOLE SODIUM 40 MG VIAL IVP SCH (18:12)
[2016-11-04] MEDS ORDERED: VITA100064 PO (20:25)
[2016-11-04] MEDS ORDERED: HYDR12.57 PO (20:25)
[2016-11-04] MEDS ORDERED: LEVO100T5 PO (20:25)
[2016-11-04] MEDS ORDERED: ASPI81CH3 CHEW (20:25)
[2016-11-04] MEDS ORDERED: LEXA10TA PO (20:25)
[2016-11-04] MEDS ORDERED: PRESCAP5 PO (20:25)
[2016-11-04] MEDS ORDERED: RAMI10CA PO (20:25)
[2016-11-04] MEDS: levETIRAcetam INJ 500 MG in SODIUM CHLORIDE 0.9% INJ 100 ML IV SCH (20:26)
[2016-11-04] MEDS: DOCUSATE SODIUM 100 MG CAP PO SCH (20:26)
[2016-11-04] MEDS: ENALAPRILAT 1.25 MG/ML VIAL IV PRN (22:06)
[2016-11-05] VITALS (15 sets, daily range): BP systolic 142–198; BP diastolic 70–80; PULSE 58–76; RESP 12–21; TEMP 97.7–98.7; O2SAT 94–100
[2016-11-05] MEDS: ENALAPRILAT 1.25 MG/ML VIAL IV PRN ×2 (00:34→11:35)
[2016-11-05] MEDS: CHLORHEXIDINE GLUCONATE 2 % 1 PACK (2 CLOTHS) TOP SCH (03:33)
[2016-11-05] MEDS ORDERED: ATROPINE SULFATE 1 MG/10 ML SYRINGE ONE (04:05)
[2016-11-05 04:15] LABS: AUTOMATED NEUTROPHIL # 6.7 TH/MM3 (1.8-7.7); BASOPHIL % 0.3 % (0.0-2.0); EOSINOPHIL % 0.2 % (0.0-4.0); HEMATOCRIT 27.1 % (35.0-46.0); HEMO FLAGS DIFF FINAL; LYMPH % 13.5 % (9.0-44.0); LYMPHOCYTE # 1.2 TH/MM3 (1.0-4.8); MEAN CELL VOLUME 101.8 FL (80.0-100.0); MEAN CORPUSCULAR HEMOGLOBIN 34.3 PG (27.0-34.0); MEAN CORPUSCULAR HGB CONC 33.7 % (32.0-36.0); MONO % 9.4 % (0.0-8.0); NEUT % 76.6 % (16.0-70.0); PLATELET COUNT 128 TH/MM3 (150-450); RED BLOOD COUNT 2.66 MIL/MM3 (4.00-5.30); RED CELL DISTRIBUTION WIDTH 13.1 % (11.6-17.2); WHITE BLOOD COUNT 8.7 TH/MM3 (4.0-11.0)
[2016-11-05 04:41] LABS: ALKALINE PHOSPHATASE 52 U/L (45-117); ALT (GPT) 31 U/L (10-53); ANION GAP 6 MEQ/L (5-15); AST (GOT) 17 U/L (15-37); BICARBONATE 27.4 MEQ/L (21.0-32.0); BLOOD UREA NITROGEN 12 MG/DL (7-18); CHLORIDE 106 MEQ/L (98-107); GLOMERULAR FILTRATION RATE 90 ML/MIN (>89); POTASSIUM 3.9 MEQ/L (3.5-5.1); SODIUM (NA) 139 MEQ/L (136-145); TOTAL BILIRUBIN ADULT 0.4 MG/DL (0.2-1.0)
[2016-11-05] MEDS: HYDROmorphone HCL 2 MG TAB PO PRN (04:43)
[2016-11-05 04:53] LABS: BLOOD GAS BASE EXCESS 2.3 mmol/L (-2-2); BLOOD GAS CARBOXYHEMOGLOBIN 1.4 % (0-4); BLOOD GAS HCO3 27 mmol/L (22-26); BLOOD GAS METHEMOGLOBIN 0.9 % (0-2); BLOOD GAS O2 HGB SATURATION 97 % (90-100); BLOOD GAS OXYGEN CONTENT 13.8 Vol % (12.0-20.0); BLOOD GAS PCO2 48 mmHg (38-42); BLOOD GAS PO2 135 mmHg (61-120); BLOOD GAS TOTAL HGB 9.9 G/DL (12.0-16.0); TEMP CORR TO 98.6
[2016-11-05 04:54] LABS: CRITICAL VALUE NO; DRAW SITE RT RADIAL; LITER FLOW 10 L/M; NUMBER OF ARTERIAL PUNCTURES 1; OXYGEN DEVICE SIMPLE MASK; STAT NO; ULNAR PULSE PRESENT
--- NOTE | 2016-11-05 05:19 | RADRPT ---
EXAM DATE/TIME: 11/05/2016 04:23 [facility] COMPARISON: CT BRAIN W/O CONTRAST, November 03, 2016, 14:54. INDICATIONS : Follow up bleed. RADIATION DOSE: 59.16 CTDIvol (mGy) MEDICAL HISTORY : Hypertension. SURGICAL HISTORY : None. ENCOUNTER: Subsequent ACUITY: 2 days PAIN SCALE: 0/10 LOCATION: cranial TECHNIQUE: Multiple contiguous axial images were obtained of the head. Using automated exposure control and adj ustment of the mA and/or kV according to patient size, radiation dose was kept as low as reasonably a chievable to obtain optimal diagnostic quality images. FINDINGS: Again seen is the small hemorrhagic contusion involving the right frontal lobe inferiorly. This is st able. A small amount of blood is seen adjacent to the falx anteriorly. This is stable. Both have show n interval decrease in density. No new sites of hemorrhage. Brain shows normal attenuation otherwise. Calcifications involving the basal ganglia. Previously described facial fractures again seen. Air-fl uid levels noted within both maxillary sinuses. A 3 mm rounded radiopaque density seen just to the le ft of the nasal bone on the left. This is unchanged. Frontal soft tissue swelling is stable. CONCLUSION: 1. Maturation of the hemorrhagic contusion of the right frontal lobe as well as the interhemispheric blood. No new hemorrhage seen. No mass effect. 2. Previously described facial fractures. 3. 3 mm radiopaque foreign body just to the left of the nose. Leonid Chowdary Jr., MD on November 05, 2016 at 5:13 Board Certified Radiologist. This report was verified electronically.
--- NOTE | 2016-11-05 06:12 | RADRPT ---
EXAM DATE/TIME: 11/05/2016 05:09 [facility] COMPARISON: CHEST SINGLE AP, November 03, 2016, 15:57. INDICATIONS : Short of breath. MEDICAL HISTORY : None. SURGICAL HISTORY : None. ENCOUNTER: Subsequent ACUITY: 3 days PAIN SCORE: Non-responsive. LOCATION: Bilateral chest FINDINGS: A single portable frontal view the chest shows consolidation involving the perihilar aspects of both lungs more pronounced on the right. Basilar consolidations are stable. No effusions. Heart is normal in size. Degenerative spine. CONCLUSION: Worsening consolidations involving the perihilar aspects of both lungs. Stable infiltrates within the basilar segments. Leonid Chowdary Jr., MD on November 05, 2016 at 6:10 Board Certified Radiologist. This report was verified electronically.
[2016-11-05] MEDS: levETIRAcetam INJ 500 MG in SODIUM CHLORIDE 0.9% INJ 100 ML IV SCH ×2 (08:08→20:01)
[2016-11-05] MEDS: DOCUSATE SODIUM 100 MG CAP PO SCH ×2 (08:08→20:01)
[2016-11-05] MEDS: SODIUM CHLOR 0.9% 1000 ML INJ 1,000 ML IV SCH ×2 (08:10→20:01)
[2016-11-05] MEDS: MORPHINE SULFATE 4 MG/ML INJ IV PRN (09:25)
[2016-11-05] MEDS ORDERED: POTASSIUM CHLOR 20 MEQ PREMIX 100 ML IV PRN ×2 (09:30)
[2016-11-05] MEDS ORDERED: MAGNESIUM OXIDE 400 MG TAB PO PRN (09:30)
[2016-11-05] MEDS ORDERED: POTASSIUM CHLOR 40 MEQ PREMIX 100 ML IV PRN ×2 (09:30)
[2016-11-05] MEDS ORDERED: MAGNESIUM SULFATE INJ 4 GM in SODIUM CHLORIDE 0.9% INJ 92 ML IV PRN (09:30)
[2016-11-05] MEDS ORDERED: POTASSIUM PHOSPHATE MONOBASIC 500 MG TAB PO PRN (09:30)
[2016-11-05] MEDS ORDERED: POTASSIUM CHLORIDE 25 MEQ EFFERVESCENT TAB PO PRN (09:30)
[2016-11-05] MEDS ORDERED: MAGNESIUM SULFATE INJ 2 GM in SODIUM CHLORIDE 0.9% INJ 96 ML IV PRN (09:30)
[2016-11-05] MEDS ORDERED: POTASSIUM PHOSPHATE MONOBASIC 500 MG TAB PO/TUBE PRN (09:30)
[2016-11-05] MEDS: SODIUM PHOSPHATE INJ 30 MMOL in SODIUM CHLOR 0.9% 250 ML INJ 240 ML IV PRN (10:29)
[2016-11-05] MEDS ORDERED: MIDAZOLAM HCL 5 MG/5 ML VIAL IV ONE (12:30)
[2016-11-05] MEDS ORDERED: LIDOCAINE 1%/EPINEPHrine 1:200,000 PF SOLN 30 ML VIAL OTHER ONE (12:30)
[2016-11-05] MEDS ORDERED: MORPHINE SULFATE 8 MG/ML INJ IV PUSH ONE (12:30)
[2016-11-05] MEDS ORDERED: LIDOCAINE 2%/EPINEPHrine PF 1:200,000 20ML SDV OTHER ONE (12:45)
[2016-11-05] MEDS: LEVOTHYROXINE SODIUM 100 MCG TAB PO SCH (13:00)
[2016-11-05] MEDS: HYDROCHLOROTHIAZIDE 12.5 MG CAP PO SCH (13:00)
--- NOTE | 2016-11-05 13:04 | PD.OP ---
Operative Report Date of Surgery: November 05, 2016 Preoperative Diagnosis: Cervical C2 type II displaced odontoid fracture Postoperative Diagnosis: Same Procedure: Closed reduction and internal fixation with manipulation of C2 fracture; HALO placement Anesthesia: Local with conscious sedation Surgeon: Clyde Mcmahon M.D. [employer] Instructor(s): None Operation and Findings: Informed consent was obtained from the patient and . Procedure undertaken at the bedside in the surgical intensive care unit with oxygen saturation and hemodynamic monitoring. After administration of intravenous morphine, neck was maintained in a [place] J collar during the placement of the halo. A bifrontal and occipital regions were then shaved and prepped with Betadine solution and infiltrated with 1% lidocaine with epinephrine solution avoiding the laceration sites. The halo ring was in place with 2 frontal and occipital pins tightened to 8 pounds of torque pressure. I tried to restore cervical spine alignment with the C2 dens relative to body with gentle neck manipulations with multiple x-ray confirmations as much as was feasible. The halo vest was then also placed in the ring connectors of the vest with rods and locked in place at 30 pounds of pressure at each connection maintaining a neutral neck position. A lateral cervical spine x-ray was obtained which confirmed maintained cervical spinal alignment. Patient tolerated the procedure well without any complications or blood loss. Clyde Mcmahon MD November 05, 2016 13:04
--- NOTE | 2016-11-05 13:25 | OTSOAPIP ---
TIME SESSION COMPLETED: AM TREATMENT TIME: 0 MINS. CHART REVIEWED. INTERDISCIPLINARY COMMUNICATION: PATIENT WAITING FOR HALO PLACEMENT PROCEDURE, NURSING REQUEST TO HOLD. PLAN: WILL SEE PATIENT NEXT TREATMENT DAY Therapist: ALEXIS JIMENEZ/Pablo Signature on file
--- NOTE | 2016-11-05 14:03 | RADRPT ---
EXAM DATE/TIME: 11/05/2016 12:58 [facility] COMPARISON: CT CERVICAL SPINE W/O CONTRAST, November 03, 2016, 14:54. INDICATIONS : Halo adjustment for cervical fracture. MEDICAL HISTORY : None. SURGICAL HISTORY : None. ENCOUNTER: Subsequent ACUITY: 3 days PAIN SCORE: 5/10 LOCATION: neck FINDINGS: A single lateral view of the cervical spine was performed. A fracture at C2 again seen. There is post erior displacement of the tip of the dens. Halo noted. Degenerative changes throughout the cervical s pine.. CONCLUSION: Displaced fracture of the dens. Trent Dahl MD on November 05, 2016 at 14:00 Board Certified Radiologist. This report was verified electronically.
--- NOTE | 2016-11-05 14:04 | RADRPT ---
EXAM DATE/TIME: 11/05/2016 12:58 [facility] COMPARISON: SPINE CERVICAL LATERAL ONLY, November 05, 2016, 12:58. INDICATIONS : Halo adjustment for cervical fracture. MEDICAL HISTORY : None. SURGICAL HISTORY : None. ENCOUNTER: Subsequent ACUITY: 3 days PAIN SCORE: 5/10 LOCATION: neck FINDINGS: A single lateral view of the cervical spine was performed. Fracture of C2 again seen. The tip of the dens is displaced posteriorly. Degenerative changes. Halo noted. CONCLUSION: 1. Fracture of the dens. 2. Halo device. Trent Dahl MD on November 05, 2016 at 14:01 Board Certified Radiologist. This report was verified electronically.
--- NOTE | 2016-11-05 14:04 | RADRPT ---
EXAM DATE/TIME: 11/05/2016 12:58 [facility] COMPARISON: CT CERVICAL SPINE W/O CONTRAST, November 03, 2016, 14:54. INDICATIONS : Halo adjustment for cervical fracture. MEDICAL HISTORY : None. SURGICAL HISTORY : None. ENCOUNTER: Subsequent ACUITY: 3 days PAIN SCORE: 5/10 LOCATION: neck FINDINGS: Single lateral view of the cervical spine demonstrates C2 odontoid process fracture with posterior di splacement grossly unchanged from CT of 11/03/2016. CONCLUSION: Posteriorly displaced odontoid process fracture of C2 again seen. Quinton Anrold MD on November 05, 2016 at 14:00 Board Certified Radiologist. This report was verified electronically.
--- NOTE | 2016-11-05 16:16 | HHI.CCPN ---
Subjective Brief History 76-year-old female fell will play mini golf face forward. Patient is awake and alert on arrival Workup reveals Cerebral right frontal contusion with subarachnoid hemorrhage and some hemorrhage around basal ganglia C1 and C2 fracture Extensive facial fractures 24 Hour Review/Hospital Course Neurologically patient is fully intact she is awake alert and oriented Multiple bruises and swelling over the face and patient's has some degree of photophobia C-collar is in place and according to neurosurgery plan is to place a halo 11/05 GCS 15,had minor dysphagia,protecting airway C collar in place for hallo today Objective Vital Signs Date Time Temp Pulse Resp B/P Pulse Ox O2 Delivery O2 Flow Rate FiO2 11/05/16 14:00 68 11/05/16 12:00 97.7 12 165/72 99 11/05/16 08:41 Simple Mask 6.00 Intake and Output 11/04/16 11/04/16 11/05/16 08:00 16:00 00:00 Intake Total 869 ml 894 ml Output Total 400 ml 400 ml Balance 469 ml 494 ml Result Diagram: 11/05/16 0337 11/05/16 0337 Other Results Laboratory Tests Test 11/05/16 04:38 Blood Gas Puncture Site RT RADIAL Blood Gas Patient Temperature 98.6 Blood Gas HCO3 27 mmol/L (22-26) Blood Gas Base Excess 2.3 mmol/L (-2-2) Blood Gas Oxygen Saturation 97 % (90-100) Arterial Blood pH 7.37 (7.380-7.420) Arterial Blood Partial 48 mmHg (38-42) Pressure CO2 Arterial Blood Partial 135 mmHg Pressure O2 (61-120) Arterial Blood Oxygen Content 13.8 Vol % (12.0-20.0) Arterial Blood 1.4 % (0-4) Carboxyhemoglobin Arterial Blood Methemoglobin 0.9 % (0-2) Blood Gas Hemoglobin 9.9 G/DL (12.0-16.0) Oxygen Delivery Device SIMPLE MASK Blood Gas Liter Flow 10 L/M Imaging Last 24 hours Impressions Cervical Spine X-Ray 11/05/161330 Signed Impressions: Service Date/Time: Saturday, November 05, 2016 12:58 - CONCLUSION: 1. Fracture of the dens. 2. Halo device. Trent Dahl MD Cervical Spine X-Ray 11/05/161330 Signed Impressions: Service Date/Time: Saturday, November 05, 2016 12:58 - CONCLUSION: Displaced fracture of the dens. Trent Dahl MD Head CT 11/05/16 0600 Signed Impressions: Service Date/Time: Saturday, November 05, 2016 04:23 - CONCLUSION: 1. Maturation of the hemorrhagic contusion of the right frontal lobe as well as the interhemispheric blood. No new hemorrhage seen. No mass effect. 2. Previously described facial fractures. 3. 3 mm radiopaque foreign body just to the left of the nose. Leonid Chowdary Jr., MD Chest X-Ray 11/05/16 06 Signed Impressions: Service Date/Time: Saturday, November 05, 2016 05:09 - CONCLUSION: Worsening consolidations involving the perihilar aspects of both lungs. Stable infiltrates within the basilar segments. Leonid Chowdary Jr., MD Cervical Spine X-Ray 11/05/16 0000 Signed Impressions: Service Date/Time: Saturday, November 05, 2016 12:58 - CONCLUSION: Posteriorly displaced odontoid process fracture of C2 again seen. Quinton Arnold MD Exam DRYERMAN/WOMAN GCS 15,moving all extremities Hemodynamic/Cardiac stable,SR Pulmonary/Respiratory clear b/l Abdomen/GI Nutrition soft,npo Renal/I&O uo adequat Assessment and Plan Plan stable from general trauma standpoint Halo to placed by NS today speech and swallow assessment continues to protect airway Kay Mello MD November 05, 2016 16:16
--- NOTE | 2016-11-05 16:31 | HHI.NSPN ---
(Trent Muniz) History Chief Complaint: Neck pain. (Trent Muniz) Interval History this is a 76-year-old female brought to [facility] for evaluation after she sustained a fall, injuring her face. Apparently she was playing mini golf when she tripped on a curb. She face planted, during her fall she did not attempt to brace herself during the fall with her hands. No loss of consciousness. No seizure activity. No tongue biting. No incontinence of stool or urine. She developed immediate onset of neck pain. She now reports face pain, neck pain and head pain 7/10. She reports her pain as a 7 out of 10 and describes it as throbbing and aching. Patient also reports nosebleed and a cut on her inner lower lip. The fall was witnessed by her who is present. Patient does take 81 mg of aspirin daily. She denies any focal motor weakness. She denies any sensory loss. No incontinence of stool or urine. CT of the brain showed evidence of cerebral contusions, a possible basal ganglia hemorrhage, craniofacial fractures. CT of the cervical spine showed a C2 and C1 fracture. Neurosurgical consultation was requested. 11/04/16: Pt awake and alert. Complains of headache, facial pain, neck pain. No radiculopathy in UEs. No paresthesias in UEs. 11/05/16: Pt awake and alert. Complains of neck pain. No radiculopathy in UEs. No paresthesias in UEs. RN states Morphine has been sedating pt. (Trent Muniz) Review of Systems General: Negative for: fever, chills, insomnia Respiratory: Negative for: shortness of breath, cough, sputum Cardiovascular: Negative for: chest pain Gastrointestinal: Negative for: nausea, vomitting, diarrhea, constipation ( Trent Muniz) Exam Results Vital Signs Date Time Temp Pulse Resp B/P Pulse Ox O2 Delivery O2 Flow Rate FiO2 11/05/16 14:00 68 11/05/16 12:00 97.7 12 165/72 99 11/05/16 08:41 Simple Mask 6.00 Intake and Output 11/04/16 11/04/16 11/05/16 08:00 16:00 00:00 Intake Total 869 ml 894 ml Output Total 400 ml 400 ml Balance 469 ml 494 ml (Trent Muniz) Physical Examination Resp: CTA bilaterally Heart: NSR no murmurs Abd: Soft positive bs Skin: Ecchymosis and edema face improving. Halo pin sites clean and dry. Muscle: Moves all 4 extremities with good strength. 5/5 in UEs. Halo intact. Neuro: Pt awake and alert. Follows commands well. Speech appropriate. Sensation intact in extremities. (Trent Muniz) Lab, Micro, Other Results Last Impressions Cervical Spine X-Ray 11/05/16 1331 Signed Impressions: Service Date/Time: Saturday, November 05, 2016 12:58 - CONCLUSION: 1. Fracture of the dens. 2. Halo device. Trent Dahl MD Head CT 11/05/16 0600 Signed Impressions: Service Date/Time: Saturday, November 05, 2016 04:23 - CONCLUSION: 1. Maturation of the hemorrhagic contusion of the right frontal lobe as well as the interhemispheric blood. No new hemorrhage seen. No mass effect. 2. Previously described facial fractures. 3. 3 mm radiopaque foreign body just to the left of the nose. Leonid Cohwdary Jr., MD Chest X-Ray 11/05/16 0600 Signed Impressions: Service Date/Time: Saturday, November 05, 2016 05:09 - CONCLUSION: Worsening consolidations involving the perihilar aspects of both lungs. Stable infiltrates within the basilar segments. Leonid Chowdary Jr., MD Maxillofacial CT 11/03/16 0000 Signed Impressions: Service Date/Time: Thursday, November 03, 2016 14:54 - CONCLUSION: 1. Multifocal areas of subtle lytic bone destruction in the inferior calvarium and also the sphenoid bone and clivus. Differential diagnosis includes myeloma and metastatic disease. 2. Multiple facial bone fractures including nasal septum, bilateral nasal bones , bilateral maxillary sinuses with hemorrhage in both maxillary sinuses. 3. Abnormal soft tissue and calcification in the inferomedial left orbit. Differential diagnosis includes a focal area of hemorrhage or possibly chronic nasolacrimal duct disease. 4. Mucosal thickening in ethmoid air cells. Hypoplastic frontal sinus. Sphenoid sinus unremarkable. 5. Chronic appearing deformity of the left mandibular condyle possibly related to prior trauma or avascular necrosis. Casper Guzman MD Humerus X-Ray 11/03/16 0000 Signed Impressions: Service Date/Time: Thursday, November 03, 2016 15:53 - CONCLUSION: Unremarkable examination of the right humerus. Casper Guzman MD Cervical Spine MRI 11/03/16 0000 Signed Impressions: Service Date/Time: Thursday, November 03, 2016 16:52 - CONCLUSION: 1. C2 fracture at the base of the dens with about 4 mm of posterior displacement. 2. No canal stenosis within the cervical spine. No evidence for cord edema or cord contusion. 3. Moderate degenerative disc disease of the lower cervical spine with a minimal degenerative anterolisthesis of C6 on C7. 4. No other fractures identified on MRI. Casper Guzman MD Cervical Spine CT 11/03/16 0000 Signed Impressions: Service Date/Time: Thursday, November 03, 2016 14:54 - CONCLUSION: 1. Fracture through the base of the dens of C2 with about 4 mm of posterior and inferior displacement of the posterior cortex. No significant canal stenosis. 2. Hairline nondisplaced fracture right posterior arch of C1. 3. 1 cm soft tissue swelling anterior to the dens. Degenerative disc disease with minimal degenerative anterolisthesis of C4 on C5 and C6 on C7. Casper Guzman MD Laboratory Tests Test 11/04/16 11/05/16 11/05/16 18:45 03:37 04:38 Nasal Screen MRSA (PCR) MRSA NOT DETECTED White Blood Count 8.7 TH/MM3 Red Blood Count 2.66 MIL/MM3 Hemoglobin 9.1 GM/DL Hematocrit 27.1 % Mean Corpuscular Volume 101.8 FL Mean Corpuscular Hemoglobin 34.3 PG Mean Corpuscular Hemoglobin 33.7 % Concent Red Cell Distribution Width 13.1 % Platelet Count 128 TH/MM3 Mean Platelet Volume 8.4 FL Neutrophils (%) (Auto) 76.6 % Lymphocytes (%) (Auto) 13.5 % Monocytes (%) (Auto) 9.4 % Eosinophils (%) (Auto) 0.2 % Basophils (%) (Auto) 0.3 % Neutrophils # (Auto) 6.7 TH/MM3 Lymphocytes # (Auto) 1.2 TH/MM3 Monocytes # (Auto) 0.8 TH/MM3 Eosinophils # (Auto) 0.0 TH/MM3 Basophils # (Auto) 0.0 TH/MM3 CBC Comment DIFF FINAL Differential Comment Sodium Level 139 MEQ/L Potassium Level 3.9 MEQ/L Chloride Level 106 MEQ/L Carbon Dioxide Level 27.4 MEQ/L Anion Gap 6 MEQ/L Blood Urea Nitrogen 12 MG/DL Creatinine 0.64 MG/DL Estimat Glomerular Filtration 90 ML/MIN Rate Random Glucose 122 MG/DL Calcium Level 7.5 MG/DL Phosphorus Level 2.4 MG/DL Magnesium Level 2.0 MG/DL Total Bilirubin 0.4 MG/DL Aspartate Amino Transf 17 U/L (AST/SGOT) Alanine Aminotransferase 31 U/L (ALT/SGPT) Alkaline Phosphatase 52 U/L Total Protein 5.4 GM/DL Albumin 2.8 GM/DL Blood Gas Puncture Site RT RADIAL Blood Gas Patient Temperature 98.6 Blood Gas HCO3 27 mmol/L Blood Gas Base Excess 2.3 mmol/L Blood Gas Oxygen Saturation 97 % Arterial Blood pH 7.37 Arterial Blood Partial 48 mmHg Pressure CO2 Arterial Blood Partial 135 mmHg Pressure O2 Arterial Blood Oxygen Content 13.8 Vol % Arterial Blood 1.4 % Carboxyhemoglobin Arterial Blood Methemoglobin 0.9 % Blood Gas Hemoglobin 9.9 G/DL Oxygen Delivery Device SIMPLE MASK Blood Gas Liter Flow 10 L/M 11/04/16 11/04/16 11/05/16 15:00 23:00 07:00 Intake Total 869 ml 894 ml 660 ml Output Total 400 ml 400 ml 400 ml Balance 469 ml 494 ml 260 ml IV Total 869 ml 894 ml 660 ml Output Urine Total 400 ml 400 ml 400 ml # Bowel Movements 0 0 0 (Trent Muniz) Medical Decision Making Impression and Plan A: 76 y/o FM with C1 and C2 fracture P: Continue with pain control. Will start Tramadol and try to use less if any Morphine. PT (Trent Muniz) Impression and Plan The exam, history, and the medical decision-making described in the above note were completed with the assistance of the mid-level provider. I reviewed and agree with the findings presented. I attest that I had a [id number] encounter with the patient on the same day, and personally performed and documented my assessment and findings in the medical record. Follow-up CT scan head with the stable intrusions and small areas of hemorrhage. We will proceed with halo placement in that and closed reduction of the C2 displaced 2 odontoid fracture. Updated and brother. (Clyde Mcmahon MD) Trent Muniz November 05, 2016 16:30 Clyde Mcmahon MD November 05, 2016 16:43
[2016-11-05] MEDS ORDERED: MORPHINE SULFATE 4 MG/ML INJ IV PRN (17:00)
[2016-11-05] MEDS: PANTOPRAZOLE SODIUM 40 MG VIAL IVP SCH (18:42)
[2016-11-05] MEDS: RAMIPRIL 5 MG CAP PO SCH (20:01)
[2016-11-05] MEDS: traMADol HCL 50 MG TAB PO PRN (20:02)
[2016-11-06] VITALS (12 sets, daily range): BP systolic 161–175; BP diastolic 68–88; PULSE 58–84; RESP 13–26; TEMP 97.5–99.2; O2SAT 91–95
[2016-11-06] MEDS: ENALAPRILAT 1.25 MG/ML VIAL IV PRN (01:06)
[2016-11-06] MEDS: traMADol HCL 50 MG TAB PO PRN ×2 (02:04→21:42)
[2016-11-06] MEDS: CHLORHEXIDINE GLUCONATE 2 % 1 PACK (2 CLOTHS) TOP SCH ×2 (04:00→23:12)
[2016-11-06] MEDS: SODIUM PHOSPHATE INJ 30 MMOL in SODIUM CHLOR 0.9% 250 ML INJ 240 ML IV PRN (04:02)
[2016-11-06] MEDS: SODIUM CHLOR 0.9% 1000 ML INJ 1,000 ML IV SCH (04:09)
--- NOTE | 2016-11-06 04:12 | RADRPT ---
EXAM DATE/TIME: 11/06/2016 03:21 [facility] COMPARISON: CHEST SINGLE AP, November 05, 2016, 5:09. INDICATIONS : Shortness of breath. MEDICAL HISTORY : None. SURGICAL HISTORY : None. ENCOUNTER: Initial ACUITY: 1 day PAIN SCORE: 0/10 LOCATION: Bilateral chest FINDINGS: A single portable frontal view the chest shows an artifact from a halo device obscuring the lung base s. The heart is normal in size. A perihilar infiltrate is seen on the right. This is unchanged. No ef fusions. CONCLUSION: 1. Halo device obscures the bases. 2. Unchanged right perihilar infiltrate. Leonid Chowdary Jr., MD on November 06, 2016 at 4:10 Board Certified Radiologist. This report was verified electronically.
[2016-11-06 04:34] LABS: AUTOMATED NEUTROPHIL # 6.4 TH/MM3 (1.8-7.7); BASOPHIL % 0.3 % (0.0-2.0); EOSINOPHIL % 0.5 % (0.0-4.0); HEMATOCRIT 27.9 % (35.0-46.0); HEMO FLAGS DIFF FINAL; LYMPH % 14.3 % (9.0-44.0); LYMPHOCYTE # 1.2 TH/MM3 (1.0-4.8); MEAN CELL VOLUME 100.8 FL (80.0-100.0); MEAN CORPUSCULAR HEMOGLOBIN 33.9 PG (27.0-34.0); MEAN CORPUSCULAR HGB CONC 33.6 % (32.0-36.0); MONO % 9.2 % (0.0-8.0); NEUT % 75.7 % (16.0-70.0); PLATELET COUNT 121 TH/MM3 (150-450); RED BLOOD COUNT 2.77 MIL/MM3 (4.00-5.30); RED CELL DISTRIBUTION WIDTH 12.6 % (11.6-17.2); WHITE BLOOD COUNT 8.5 TH/MM3 (4.0-11.0)
[2016-11-06] MEDS: LEVOTHYROXINE SODIUM 100 MCG TAB PO SCH (04:47)
[2016-11-06 05:02] LABS: ALT (GPT) 37 U/L (10-53); ANION GAP 7 MEQ/L (5-15); AST (GOT) 28 U/L (15-37); BICARBONATE 30.4 MEQ/L (21.0-32.0); BLOOD UREA NITROGEN 10 MG/DL (7-18); CHLORIDE 99 MEQ/L (98-107); GLOMERULAR FILTRATION RATE 110 ML/MIN (>89); MAGNESIUM 1.9 MG/DL (1.5-2.5); POTASSIUM 3.5 MEQ/L (3.5-5.1); SODIUM (NA) 136 MEQ/L (136-145)
[2016-11-06 05:04] LABS: ALKALINE PHOSPHATASE 54 U/L (45-117); TOTAL BILIRUBIN ADULT 0.6 MG/DL (0.2-1.0)
[2016-11-06] MEDS ORDERED: LEVOTHYROXINE SODIUM 100 MCG VIAL IV PUSH SCH (06:00)
[2016-11-06] MEDS: HYDROCHLOROTHIAZIDE 12.5 MG CAP PO SCH ×2 (09:00→09:07)
--- NOTE | 2016-11-06 09:02 | HHI.NSPN ---
(Trent Muniz) History Chief Complaint: Neck pain. (Trent Muniz) Interval History this is a 76-year-old female brought to [facility] for evaluation after she sustained a fall, injuring her face. Apparently she was playing mini golf when she tripped on a curb. She face planted, during her fall she did not attempt to brace herself during the fall with her hands. No loss of consciousness. No seizure activity. No tongue biting. No incontinence of stool or urine. She developed immediate onset of neck pain. She now reports face pain, neck pain and head pain /10. She reports her pain as a 7 out of 10 and describes it as throbbing and aching. Patient also reports nosebleed and a cut on her inner lower lip. The fall was witnessed by her who is present. Patient does take 81 mg of aspirin daily. She denies any focal motor weakness. She denies any sensory loss. No incontinence of stool or urine. CT of the brain showed evidence of cerebral contusions, a possible basal ganglia hemorrhage, craniofacial fractures. CT of the cervical spine showed a C2 and C1 fracture. Neurosurgical consultation was requested. 11/04/16: Pt awake and alert. Complains of headache, facial pain, neck pain. No radiculopathy in UEs. No paresthesias in UEs. 11/05/16: Pt awake and alert. Complains of neck pain. No radiculopathy in UEs. No paresthesias in UEs. RN states Morphine has been sedating pt. 11/06/16: Pt awakens to voice. Complains of midline posterior neck pain. No radiculopathy in UEs. No paresthesias in UEs. (Trent Muniz) Review of Systems General: Negative for: fever, chills, insomnia Respiratory: Negative for: shortness of breath, cough, sputum Cardiovascular: Negative for: chest pain Gastrointestinal: Negative for: nausea, vomitting, diarrhea, constipation ( Trent Muniz) Exam Results Vital Signs Date Time Temp Pulse Resp B/P Pulse Ox O2 Delivery O2 Flow Rate FiO2 11/06/16 08:04 95 21 11/06/16 07:00 Simple Mask 6.00 11/06/16 06:00 73 11/06/16 04:00 98.3 15 161/88 Intake and Output 11/05/16 11/05/16 11/06/16 08:00 16:00 00:00 Intake Total 660 ml 1196 ml 1203 ml Output Total 400 ml 400 ml 500 ml Balance 260 ml 796 ml 703 ml (Trent Muniz) Physical Examination Resp: CTA bilaterally Heart: NSR no murmurs Abd: Soft positive bs Skin: Ecchymosis and edema face improving. Halo pin sites clean and dry. Muscle: Moves all 4 extremities with good strength. 5/5 in UEs. Halo intact. Neuro: Pt awake and alert. Follows commands well. Speech appropriate. Sensation intact in extremities. (Trent Muniz) Lab, Micro, Other Results Last Impressions Chest X-Ray 11/06/16 0600 Signed Impressions: Service Date/Time: Sunday, November 06, 2016 03:21 - CONCLUSION: 1. Halo device obscures the bases. 2. Unchanged right perihilar infiltrate. Leonid Chowdary Jr., MD Cervical Spine X-Ray 11/05/16 1331 Signed Impressions: Service Date/Time: Saturday, November 05, 2016 12:58 - CONCLUSION: 1. Fracture of the dens. 2. Halo device. Trent Dahl MD Head CT 11/05/16 0600 Signed Impressions: Service Date/Time: Saturday, November 05, 2016 04:23 - CONCLUSION: 1. Maturation of the hemorrhagic contusion of the right frontal lobe as well as the interhemispheric blood. No new hemorrhage seen. No mass effect. 2. Previously described facial fractures. 3. 3 mm radiopaque foreign body just to the left of the nose. Leonid Chodwary Jr., MD Maxillofacial CT 11/03/16 0000 Signed Impressions: Service Date/Time: Thursday, November 03, 2016 14:54 - CONCLUSION: 1. Multifocal areas of subtle lytic bone destruction in the inferior calvarium and also the sphenoid bone and clivus. Differential diagnosis includes myeloma and metastatic disease. 2. Multiple facial bone fractures including nasal septum, bilateral nasal bones , bilateral maxillary sinuses with hemorrhage in both maxillary sinuses. 3. Abnormal soft tissue and calcification in the inferomedial left orbit. Differential diagnosis includes a focal area of hemorrhage or possibly chronic nasolacrimal duct disease. 4. Mucosal thickening in ethmoid air cells. Hypoplastic frontal sinus. Sphenoid sinus unremarkable. 5. Chronic appearing deformity of the left mandibular condyle possibly related to prior trauma or avascular necrosis. Casper Guzman MD Humerus X-Ray 11/03/16 Signed Impressions: Service Date/Time: Thursday, November 03, 2016 15:53 - CONCLUSION: Unremarkable examination of the right humerus. Casper Guzman MD Cervical Spine MRI 11/03/16 Signed Impressions: Service Date/Time: Thursday, November 03, 2016 16:52 - CONCLUSION: 1. C2 fracture at the base of the dens with about 4 mm of posterior displacement. 2. No canal stenosis within the cervical spine. No evidence for cord edema or cord contusion. 3. Moderate degenerative disc disease of the lower cervical spine with a minimal degenerative anterolisthesis of C6 on C7. 4. No other fractures identified on MRI. Casper Guzman MD Cervical Spine CT 11/03/16 Signed Impressions: Service Date/Time: Thursday, November 03, 2016 14:54 - CONCLUSION: 1. Fracture through the base of the dens of C2 with about 4 mm of posterior and inferior displacement of the posterior cortex. No significant canal stenosis. 2. Hairline nondisplaced fracture right posterior arch of C1. 3. 1 cm soft tissue swelling anterior to the dens. Degenerative disc disease with minimal degenerative anterolisthesis of C4 on C5 and C6 on C7. Casper Guzman MD Laboratory Tests Test 11/05/16 11/06/16 20:50 03:45 Phosphorus Level 2.2 MG/DL 1.5 MG/DL White Blood Count 8.5 TH/MM3 Red Blood Count 2.77 MIL/MM3 Hemoglobin 9.4 GM/DL Hematocrit 27.9 % Mean Corpuscular Volume 100.8 FL Mean Corpuscular Hemoglobin 33.9 PG Mean Corpuscular Hemoglobin 33.6 % Concent Red Cell Distribution Width 12.6 % Platelet Count 121 TH/MM3 Mean Platelet Volume 8.4 FL Neutrophils (%) (Auto) 75.7 % Lymphocytes (%) (Auto) 14.3 % Monocytes (%) (Auto) 9.2 % Eosinophils (%) (Auto) 0.5 % Basophils (%) (Auto) 0.3 % Neutrophils # (Auto) 6.4 TH/MM3 Lymphocytes # (Auto) 1.2 TH/MM3 Monocytes # (Auto) 0.8 TH/MM3 Eosinophils # (Auto) 0.0 TH/MM3 Basophils # (Auto) 0.0 TH/MM3 CBC Comment DIFF FINAL Differential Comment Sodium Level 136 MEQ/L Potassium Level 3.5 MEQ/L Chloride Level 99 MEQ/L Carbon Dioxide Level 30.4 MEQ/L Anion Gap 7 MEQ/L Blood Urea Nitrogen 10 MG/DL Creatinine 0.54 MG/DL Estimat Glomerular Filtration 110 ML/MIN Rate Random Glucose 121 MG/DL Calcium Level 8.2 MG/DL Magnesium Level 1.9 MG/DL Total Bilirubin 0.6 MG/DL Aspartate Amino Transf 28 U/L (AST/SGOT) Alanine Aminotransferase 37 U/L (ALT/SGPT) Alkaline Phosphatase 54 U/L Total Protein 5.8 GM/DL Albumin 3.0 GM/DL 11/05/16 11/05/16 11/06/16 15:00 23:00 07:00 Intake Total 1196 ml 1203 ml 867 ml Output Total 400 ml 500 ml 1250 ml Balance 796 ml 703 ml -383 ml Intake Oral 240 ml 420 ml 240 ml IV Total 956 ml 783 ml 627 ml Output Urine Total 400 ml 500 ml 1250 ml # Bowel Movements 0 0 0 (Trent Muniz) Medical Decision Making Impression and Plan A: 76 y/o FM with C1 and C2 fracture P: Continue with pain control. PT Rehab placement depending on progress/safety with PT. (Trent Muniz) Attending Statement The exam, history, and the medical decision-making described in the above note were completed with the assistance of the mid-level provider. I reviewed and agree with the findings presented. I attest that I had a [id number] encounter with the patient on the same day, and personally performed and documented my assessment and findings in the medical record. C2 fractures treated with a halo. Stable from a traumatic brain injury standpoint. Will benefit from rehabilitation although seems reluctant to go to a rehabilitation setting. Updated . (Clyde Mcmahon MD) Trent Muniz November 06, 2016 09:02 Clyde Mcmahon MD November 06, 2016 16:17
[2016-11-06] MEDS: levETIRAcetam INJ 500 MG in SODIUM CHLORIDE 0.9% INJ 100 ML IV SCH (09:06)
[2016-11-06] MEDS: DOCUSATE SODIUM 100 MG CAP PO SCH ×2 (09:07→21:42)
[2016-11-06] MEDS: RAMIPRIL 5 MG CAP PO SCH ×2 (09:07→21:43)
[2016-11-06] MEDS: ASPIRIN 81 MG CHEW TAB CHEW SCH (09:07)
[2016-11-06] MEDS: ESCITALOPRAM OXALATE 10 MG TAB PO SCH (09:07)
--- NOTE | 2016-11-06 10:41 | HHI.CCPN ---
Subjective Brief History [place]HAL[place]: This is a 76-year-old female fell while playing mini golf and landed on her face - she did not brace her fall. He walked into the ED and was awake and alert on arrival. PMHx: Lumpectomy, AVM, hypothyroidism, HTN INJURIES: SAH RIGHT frontal lobe LEFT basal ganglia hemorrhage C1 hairline fx (R posterior arch) C2 fx w/ displacement (NO edema) EXTENSIVE facial bone fx (nasal, septum w/ hemorrhage into bilateral sinuses) Procedures: 11/05: HALO PLACEMENT. Closed reduction and interna; fixation w/ manipulation of C2 fx. Consults: Neurosurgery. OM. [facility]. 24 Hour Review/Hospital Course 11/04/2016 Neurologically patient is fully intact she is awake alert and oriented Multiple bruises and swelling over the face and patient's has some degree of photophobia C-collar is in place and according to neurosurgery plan is to place a halo 11/05/2016 GCS 15,had minor dysphagia,protecting airway C collar in place for halo today 11/06/2016 PTD: 3 Patient is awake, and out of bed in a chair. She is S/P halo placement yesterday. All medications will be transferred to po. She is stable, and progressing well, therefore she can transferred to the MedSur floor. Hopefully rehabilitation placement can be arranged for tomorrow's admission ( Angelia Dacosta) Remarks seen and examined with BINDER SORTER doing well protecting airway,passed swallow study stable overall restarted home meds- transfer floor- rehab in the next 24 hrs (Kay Mello MD) Objective Vital Signs Date Time Temp Pulse Resp B/P Pulse Ox O2 Delivery O2 Flow Rate FiO2 11/06/16 08:04 95 21 11/06/16 07:00 Simple Mask 6.00 11/06/16 06:00 73 11/06/16 04:00 98.3 15 161/88 Intake and Output 11/05/16 11/05/16 11/06/16 08:00 16:00 00:00 Intake Total 660 ml 1196 ml 1203 ml Output Total 400 ml 400 ml 500 ml Balance 260 ml 796 ml 703 ml (Angelia Dacosta) Result Diagram: 11/06/16 0345 11/06/16 0345 Imaging Last 24 hours Impressions Chest X-Ray 11/06/16 0600 Signed Impressions: Service Date/Time: Sunday, November 06, 2016 03:21 - CONCLUSION: 1. Halo device obscures the bases. 2. Unchanged right perihilar infiltrate. Leonid Chowdary Jr., MD Cervical Spine X-Ray 11/05/16 1331 Signed Impressions: Service Date/Time: Saturday, November 05, 2016 12:58 - CONCLUSION: 1. Fracture of the dens. 2. Halo device. Trent Dahl MD Cervical Spine X-Ray 11/05/16 1331 Signed Impressions: Service Date/Time: Saturday, November 05, 2016 12:58 - CONCLUSION: Displaced fracture of the dens. Trent Dahl MD Objective Remarks GENERAL: This is a 76-year-old female who is sitting out of bed in a recliner chair. She is pleasant and cooperative. SKIN: Warm and dry. Ecchymosis to face, especially chin and lower cheek area HEAD: Normocephalic. Halo in place. Pin sites intact. EYES: PERRLA ENT: No nasal bleeding or discharge. Mucous membranes pink and moist. NECK: Trachea midline. No JVD. CARDIOVASCULAR: Regular rate and rhythm. RESPIRATORY: No accessory muscle use. Lungs are clear to auscultation. Breath sounds equal bilaterally. No distress or dyspnea. GASTROINTESTINAL: BS + x 4 quads. Abdomen soft, non-tender, nondistended. MUSCULOSKELETAL: Extremities without cyanosis, or edema. + peripheral pulses x 4 extremities. Warm with good capillary refill and sensation. MAEW. NEUROLOGICAL: Awake and alert. Normal speech and pattern. (Angelia Dacosta) Urinary Catheter Assessment Urinary Catheter: Yes Assessment to: Continue Marie insert reason: Measure Accurate Output (Angelia Dacosta) Vascular Central Line Catheter Vascular Central Line Catheter: No (Angelia Dacosta) Assessment and Plan Assessment: (1) Acute intracranial hemorrhage ICD Code: I62.9 Status: Acute (2) Facial bone fracture ICD Code: S02.92XA Status: Acute (3) C2 cervical fracture ICD Code: S12.100A Status: Acute Plan [place]: This is a 76-year-old female who sustained a fall. She tripped and [place]. She landed face first. INJURIES: SAH RIGHT frontal lobe LEFT basal ganglia hemorrhage C1 hairline fx (R posterior arch) C2 fx w/ displacement (NO edema) EXTENSIVE facial bone fx (nasal, septum w/ hemorrhage into bilateral sinuses) Diet: Regular diet. Tolerating po diet. Encourage good po intake with each meal. Pulmonary: Encourage good pulmonary toileting. IS at bedside and pt encouraged to use. Rationale for use explained to patient, and verbalized understanding. PAIN Management: Tramadol po Activity: OOB. PT and OT ordered. GI prophylaxis: Protonix IV - changed to Pepcid po Bowel regimen: Colace and MOM. LBM: 0. Intensified with lactulose daily. DVT prophylaxis: Mechanical VTE with SCDs. Chemical management TBD. DC Planning: Case management consulted for assistance with final discharge disposition. Plan for discharge to [facility] tomorrow if accepted for admission. Emotional support provided to patient and family at bedside and plan of care discussed. Discussed with RN at bedside during trauma rounds. Patient is hemodynamically stable in the ICU, therefore she can be managed on the med/surg floor. - Right subarachnoid hemorrhage - Left basal ganglia hemorrhage Neurosurgery consulted and assisting with care and management Serial neuro checks Pain control - tramadol po PT and OT ordered Speech therapy - swallow eval Keppra changed to po - C1 hairline fracture - C2 fracture with displacement s/p 11/05: HALO PLACEMENT. Closed reduction and interna; fixation w/ manipulation of C2 fx. Pain care per protocol PT and OT ordered Pain control - tramadol po Needs rehabilitation placement - Extensive facial fractures OMFS is consulted and assisting in management and care No surgical management needed at this time Maintain sinus precautions. Follow-up on an outpatient basis (Angelia Dacosta) Problem Qualifiers (1) Facial bone fracture: Qualified Code: S02.92XA - Closed fracture of facial bone, unspecified facial bone, initial encounter (2) C2 cervical fracture: Qualified Code: S12.100A - Closed displaced fracture of second cervical vertebra, unspecified fracture morphology, initial encounter Angeila Dacosta November 06, 2016 10:41 Kay Mello MD November 06, 2016 14:38
[2016-11-06] MEDS: LACTULOSE SYRUP 20 GM/30 ML CUP PO SCH (11:20)
[2016-11-06] MEDS ORDERED: FAMO20TA2 PO (14:13)
[2016-11-06] MEDS ORDERED: LACT10SO PO (14:13)
[2016-11-06] MEDS ORDERED: ULTR50TA5 PO (14:13)
[2016-11-06] MEDS ORDERED: MILKSUS PO (14:13)
[2016-11-06] MEDS ORDERED: DOCU1CAP39 PO (14:13)
[2016-11-06] MEDS ORDERED: LEVE500 PO (14:13)
[2016-11-06] MEDS: levETIRAcetam 500 MG TAB PO SCH (21:42)
[2016-11-06] MEDS: FAMOTIDINE 20 MG TAB PO SCH (21:43)
[2016-11-07] MEDS: SODIUM CHLOR 0.9% 1000 ML INJ 1,000 ML IV SCH (01:00)
[2016-11-07 01:11] VITALS: BP 182/76; PULSE 63; RESP 20; TEMP 97; O2SAT 93
[2016-11-07 04:00] VITALS: BP 164/81; PULSE 69; RESP 18; TEMP 98.1; O2SAT 95
[2016-11-07] MEDS: LEVOTHYROXINE SODIUM 100 MCG TAB PO SCH (05:41)
[2016-11-07 07:25] LABS: AUTOMATED NEUTROPHIL # 7.3 TH/MM3 (1.8-7.7); BASOPHIL % 0.4 % (0.0-2.0); EOSINOPHIL # 0.1 TH/MM3 (0-0.4); EOSINOPHIL % 0.5 % (0.0-4.0); HEMATOCRIT 30.7 % (35.0-46.0); HEMO FLAGS DIFF FINAL; LYMPH % 11.8 % (9.0-44.0); LYMPHOCYTE # 1.1 TH/MM3 (1.0-4.8); MEAN CELL VOLUME 97.3 FL (80.0-100.0); MEAN CORPUSCULAR HEMOGLOBIN 33.9 PG (27.0-34.0); MEAN CORPUSCULAR HGB CONC 34.8 % (32.0-36.0); MONO % 9.4 % (0.0-8.0); NEUT % 77.9 % (16.0-70.0); PLATELET COUNT 134 TH/MM3 (150-450); RED BLOOD COUNT 3.15 MIL/MM3 (4.00-5.30); RED CELL DISTRIBUTION WIDTH 12.5 % (11.6-17.2); WHITE BLOOD COUNT 9.4 TH/MM3 (4.0-11.0)
[2016-11-07 07:55] LABS: ALKALINE PHOSPHATASE 68 U/L (45-117); ALT (GPT) 37 U/L (10-53); ANION GAP 8 MEQ/L (5-15); AST (GOT) 29 U/L (15-37); BLOOD UREA NITROGEN 7 MG/DL (7-18); CHLORIDE 89 MEQ/L (98-107); GLOMERULAR FILTRATION RATE 115 ML/MIN (>89); MAGNESIUM 1.6 MG/DL (1.5-2.5); SODIUM (NA) 128 MEQ/L (136-145); TOTAL BILIRUBIN ADULT 1.1 MG/DL (0.2-1.0)
[2016-11-07] MEDS ORDERED: CLON0.1T PO (07:56)
[2016-11-07] MEDS ORDERED: cloNIDine HCL 0.1 MG TAB PO PRN (08:00)
[2016-11-07 08:51] VITALS: BP 178/85; PULSE 68; RESP 18; TEMP 98.5; O2SAT 93
[2016-11-07] MEDS: HYDROCHLOROTHIAZIDE 12.5 MG CAP PO SCH (09:00)
[2016-11-07] MEDS: ASPIRIN 81 MG CHEW TAB CHEW SCH (09:00)
--- NOTE | 2016-11-07 09:04 | HHI.NSPN ---
History Chief Complaint: Neck pain. Interval History this is a 76-year-old female brought to [facility] for evaluation after she sustained a fall, injuring her face. Apparently she was playing mini golf when she tripped on a curb. She face planted, during her fall she did not attempt to brace herself during the fall with her hands. No loss of consciousness. No seizure activity. No tongue biting. No incontinence of stool or urine. She developed immediate onset of neck pain. She now reports face pain, neck pain and head pain 7/10. She reports her pain as a 7 out of 10 and describes it as throbbing and aching. Patient also reports nosebleed and a cut on her inner lower lip. The fall was witnessed by her who is present. Patient does take 81 mg of aspirin daily. She denies any focal motor weakness. She denies any sensory loss. No incontinence of stool or urine. CT of the brain showed evidence of cerebral contusions, a possible basal ganglia hemorrhage, craniofacial fractures. CT of the cervical spine showed a C2 and C1 fracture. Neurosurgical consultation was requested. 11/04/16: Pt awake and alert. Complains of headache, facial pain, neck pain. No radiculopathy in UEs. No paresthesias in UEs. 11/05/16: Pt awake and alert. Complains of neck pain. No radiculopathy in UEs. No paresthesias in UEs. RN states Morphine has been sedating pt. 11/06/16: Pt awakens to voice. Complains of midline posterior neck pain. No radiculopathy in UEs. No paresthesias in UEs. 11/07/16: Pt awake and alert. Pain controlled with Tramadol. No radiculopathy or paresthesias in UEs. Ambulated with PT. Recommends rehab placement. Review of Systems General: Negative for: fever, chills, insomnia Respiratory: Negative for: shortness of breath, cough, sputum Cardiovascular: Negative for: chest pain Gastrointestinal: Negative for: nausea, vomitting, diarrhea, constipation Exam Results Vital Signs Date Time Temp Pulse Resp B/P Pulse Ox O2 Delivery O2 Flow Rate FiO2 11/07/16 08:51 98.5 68 18 178/85 93 11/06/16 20:00 Nasal Cannula 2.00 11/06/16 08:04 21 Intake and Output 11/06/16 11/06/16 11/07/16 08:00 16:00 00:00 Intake Total 867 ml 994 ml 587 ml Output Total 1250 ml 1075 ml Balance -383 ml -81 ml 587 ml Physical Examination Resp: CTA bilaterally Heart: NSR no murmurs Abd: Soft positive bs Skin: Ecchymosis and edema face improving. Halo pin sites clean and dry. Muscle: Moves all 4 extremities with good strength. 5/5 in UEs. Halo intact. Neuro: Pt awake and alert. Follows commands well. Speech appropriate. Sensation intact in extremities. Lab, Micro, Other Results Last Impressions Chest X-Ray 11/06/16 0600 Signed Impressions: Service Date/Time: Sunday, November 06, 2016 03:21 - CONCLUSION: 1. Halo device obscures the bases. 2. Unchanged right perihilar infiltrate. Leonid Chowdary Jr., MD Cervical Spine X-Ray 11/05/16 1331 Signed Impressions: Service Date/Time: Saturday, November 05, 2016 12:58 - CONCLUSION: 1. Fracture of the dens. 2. Halo device. Trent Dahl MD Head CT 11/05/16 0600 Signed Impressions: Service Date/Time: Saturday, November 05, 2016 04:23 - CONCLUSION: 1. Maturation of the hemorrhagic contusion of the right frontal lobe as well as the interhemispheric blood. No new hemorrhage seen. No mass effect. 2. Previously described facial fractures. 3. 3 mm radiopaque foreign body just to the left of the nose. Leonid Chowdary Jr., MD Maxillofacial CT 11/03/16 0000 Signed Impressions: Service Date/Time: Thursday, November 03, 2016 14:54 - CONCLUSION: 1. Multifocal areas of subtle lytic bone destruction in the inferior calvarium and also the sphenoid bone and clivus. Differential diagnosis includes myeloma and metastatic disease. 2. Multiple facial bone fractures including nasal septum, bilateral nasal bones , bilateral maxillary sinuses with hemorrhage in both maxillary sinuses. 3. Abnormal soft tissue and calcification in the inferomedial left orbit. Differential diagnosis includes a focal area of hemorrhage or possibly chronic nasolacrimal duct disease. 4. Mucosal thickening in ethmoid air cells. Hypoplastic frontal sinus. Sphenoid sinus unremarkable. 5. Chronic appearing deformity of the left mandibular condyle possibly related to prior trauma or avascular necrosis. Casper Guzman MD Humerus X-Ray 11/03/16 0000 Signed Impressions: Service Date/Time: Thursday, November 03, 2016 15:53 - CONCLUSION: Unremarkable examination of the right humerus. Casper Guzman MD Cervical Spine MRI 11/03/16 0000 Signed Impressions: Service Date/Time: Thursday, November 03, 2016 16:52 - CONCLUSION: 1. C2 fracture at the base of the dens with about 4 mm of posterior displacement. 2. No canal stenosis within the cervical spine. No evidence for cord edema or cord contusion. 3. Moderate degenerative disc disease of the lower cervical spine with a minimal degenerative anterolisthesis of C6 on C7. 4. No other fractures identified on MRI. Casper Guzman MD Cervical Spine CT 11/03/16 0000 Signed Impressions: Service Date/Time: Thursday, November 03, 2016 14:54 - CONCLUSION: 1. Fracture through the base of the dens of C2 with about 4 mm of posterior and inferior displacement of the posterior cortex. No significant canal stenosis. 2. Hairline nondisplaced fracture right posterior arch of C1. 3. 1 cm soft tissue swelling anterior to the dens. Degenerative disc disease with minimal degenerative anterolisthesis of C4 on C5 and C6 on C7. Casper Guzman MD Laboratory Tests Test 11/07/16 06:37 White Blood Count 9.4 TH/MM3 Red Blood Count 3.15 MIL/MM3 Hemoglobin 10.7 GM/DL Hematocrit 30.7 % Mean Corpuscular Volume 97.3 FL Mean Corpuscular Hemoglobin 33.9 PG Mean Corpuscular Hemoglobin 34.8 % Concent Red Cell Distribution Width 12.5 % Platelet Count 134 TH/MM3 Mean Platelet Volume 8.4 FL Neutrophils (%) (Auto) 77.9 % Lymphocytes (%) (Auto) 11.8 % Monocytes (%) (Auto) 9.4 % Eosinophils (%) (Auto) 0.5 % Basophils (%) (Auto) 0.4 % Neutrophils # (Auto) 7.3 TH/MM3 Lymphocytes # (Auto) 1.1 TH/MM3 Monocytes # (Auto) 0.9 TH/MM3 Eosinophils # (Auto) 0.1 TH/MM3 Basophils # (Auto) 0.0 TH/MM3 CBC Comment DIFF FINAL Differential Comment Sodium Level 128 MEQ/L Potassium Level 3.0 MEQ/L Chloride Level 89 MEQ/L Carbon Dioxide Level 31.0 MEQ/L Anion Gap 8 MEQ/L Blood Urea Nitrogen 7 MG/DL Creatinine 0.52 MG/DL Estimat Glomerular Filtration 115 ML/MIN Rate Random Glucose 117 MG/DL Calcium Level 8.5 MG/DL Magnesium Level 1.6 MG/DL Total Bilirubin 1.1 MG/DL Aspartate Amino Transf 29 U/L (AST/SGOT) Alanine Aminotransferase 37 U/L (ALT/SGPT) Alkaline Phosphatase 68 U/L Total Protein 6.4 GM/DL Albumin 3.1 GM/DL 11/06/16 11/06/16 11/07/16 15:00 23:00 07:00 Intake Total 994 ml 587 ml 594 ml Output Total 1075 ml 2450 ml Balance -81 ml 587 ml -1856 ml Intake Oral 510 ml 60 ml IV Total 484 ml 587 ml 534 ml Output Urine Total 1075 ml 2450 ml # Bowel Movements 1 0 Medical Decision Making Impression and Plan A: 76 y/o FM with C1 and C2 fracture P: Continue with pain control. PT Rehab placement follow up with Neurosurgery in 6 weeks with AP and Lateral x-rays prior to visit. Trent Muniz November 07, 2016 09:03
[2016-11-07] MEDS: LACTULOSE SYRUP 20 GM/30 ML CUP PO SCH (09:54)
[2016-11-07] MEDS: ESCITALOPRAM OXALATE 10 MG TAB PO SCH (09:55)
[2016-11-07] MEDS: DOCUSATE SODIUM 100 MG CAP PO SCH (09:55)
[2016-11-07] MEDS: RAMIPRIL 5 MG CAP PO SCH (09:56)
[2016-11-07] MEDS: FAMOTIDINE 20 MG TAB PO SCH (09:59)
[2016-11-07] MEDS: levETIRAcetam 500 MG TAB PO SCH (09:59)
--- NOTE | 2016-11-07 12:23 | HHI.DS ---
Discharge Summary Admission Date November 03, 2016 at 15:54 Discharge Date: November 07, 2016 Admitting Diagnosis C-SPINE/FACIAL FRACTURES, SUBARACHNOID HEMORRHAGE, (1) Facial bone fracture Diagnosis: Principal (2) Acute intracranial hemorrhage Diagnosis: Principal (3) C2 cervical fracture Diagnosis: Principal Brief History Fall. CBC/BMP: 11/07/16 0637 11/07/16 0637 Significant Findings Laboratory Tests Test 11/05/16 11/05/16 11/05/16 11/06/16 03:37 04:38 20:50 03:45 Red Blood Count 2.66 MIL/MM3 2.77 MIL/MM3 (4.00-5.30) (4.00-5.30) Hemoglobin 9.1 GM/DL 9.4 GM/DL (11.6-15.3) (11.6-15.3) Hematocrit 27.1 % 27.9 % (35.0-46.0) (35.0-46.0) Mean Corpuscular Volume 101.8 FL 100.8 FL (80.0-100.0) (80.0-100.0) Mean Corpuscular Hemoglobin 34.3 PG (27.0-34.0) Platelet Count 128 TH/MM3 121 TH/MM3 (150-450) (150-450) Neutrophils (%) (Auto) 76.6 % 75.7 % (16.0-70.0) (16.0-70.0) Monocytes (%) (Auto) 9.4 % (0.0-8.0) 9.2 % (0.0-8.0) Random Glucose 122 MG/DL 121 MG/DL (74-106) (74-106) Calcium Level 7.5 MG/DL 8.2 MG/DL (8.5-10.1) (8.5-10.1) Phosphorus Level 2.4 MG/DL 2.2 MG/DL 1.5 MG/DL (2.5-4.9) (2.5-4.9) (2.5-4.9) Total Protein 5.4 GM/DL 5.8 GM/DL (6.4-8.2) (6.4-8.2) Albumin 2.8 GM/DL 3.0 GM/DL (3.4-5.0) (3.4-5.0) Blood Gas HCO3 27 mmol/L (22-26) Blood Gas Base Excess 2.3 mmol/L (-2-2) Arterial Blood pH 7.37 (7.380-7.420) Arterial Blood Partial 48 mmHg (38-42) Pressure CO2 Arterial Blood Partial 135 mmHg Pressure O2 (61-120) Blood Gas Hemoglobin 9.9 G/DL (12.0-16.0) Test 11/07/16 06:37 Red Blood Count 3.15 MIL/MM3 (4.00-5.30) Hemoglobin 10.7 GM/DL (11.6-15.3) Hematocrit 30.7 % (35.0-46.0) Platelet Count 134 TH/MM3 (150-450) Neutrophils (%) (Auto) 77.9 % (16.0-70.0) Monocytes (%) (Auto) 9.4 % (0.0-8.0) Sodium Level 128 MEQ/L (136-145) Potassium Level 3.0 MEQ/L (3.5-5.1) Chloride Level 89 MEQ/L (98-107) Random Glucose 117 MG/DL (74-106) Total Bilirubin 1.1 MG/DL (0.2-1.0) Albumin 3.1 GM/DL (3.4-5.0) Imaging Last Impressions Chest X-Ray 11/06/16 0600 Signed Impressions: Service Date/Time: Sunday, November 06, 2016 03:21 - CONCLUSION: 1. Halo device obscures the bases. 2. Unchanged right perihilar infiltrate. Leonid Chowdary Jr., MD Cervical Spine X-Ray 11/05/16 1331 Signed Impressions: Service Date/Time: Saturday, November 05, 2016 12:58 - CONCLUSION: 1. Fracture of the dens. 2. Halo device. Trent Dahl MD Head CT 11/05/16 0600 Signed Impressions: Service Date/Time: Saturday, November 05, 2016 04:23 - CONCLUSION: 1. Maturation of the hemorrhagic contusion of the right frontal lobe as well as the interhemispheric blood. No new hemorrhage seen. No mass effect. 2. Previously described facial fractures. 3. 3 mm radiopaque foreign body just to the left of the nose. Leonid Chowdary Jr., MD Maxillofacial CT 11/03/16 0000 Signed Impressions: Service Date/Time: Thursday, November 03, 2016 14:54 - CONCLUSION: 1. Multifocal areas of subtle lytic bone destruction in the inferior calvarium and also the sphenoid bone and clivus. Differential diagnosis includes myeloma and metastatic disease. 2. Multiple facial bone fractures including nasal septum, bilateral nasal bones , bilateral maxillary sinuses with hemorrhage in both maxillary sinuses. 3. Abnormal soft tissue and calcification in the inferomedial left orbit. Differential diagnosis includes a focal area of hemorrhage or possibly chronic nasolacrimal duct disease. 4. Mucosal thickening in ethmoid air cells. Hypoplastic frontal sinus. Sphenoid sinus unremarkable. 5. Chronic appearing deformity of the left mandibular condyle possibly related to prior trauma or avascular necrosis. Casper Guzman MD Humerus X-Ray 11/03/16 Signed Impressions: Service Date/Time: Thursday, November 03, 2016 15:53 - CONCLUSION: Unremarkable examination of the right humerus. Casper Guzman MD Cervical Spine MRI 11/03/16 Signed Impressions: Service Date/Time: Thursday, November 03, 2016 16:52 - CONCLUSION: 1. C2 fracture at the base of the dens with about 4 mm of posterior displacement. 2. No canal stenosis within the cervical spine. No evidence for cord edema or cord contusion. 3. Moderate degenerative disc disease of the lower cervical spine with a minimal degenerative anterolisthesis of C6 on C7. 4. No other fractures identified on MRI. Casper Guzman MD Cervical Spine CT 11/03/16 Signed Impressions: Service Date/Time: Thursday, November 03, 2016 14:54 - CONCLUSION: 1. Fracture through the base of the dens of C2 with about 4 mm of posterior and inferior displacement of the posterior cortex. No significant canal stenosis. 2. Hairline nondisplaced fracture right posterior arch of C1. 3. 1 cm soft tissue swelling anterior to the dens. Degenerative disc disease with minimal degenerative anterolisthesis of C4 on C5 and C6 on C7. Casper Guzman MD PE at Discharge GENERAL: This is a 76-year-old female who is sitting out of bed in a recliner chair. She is pleasant and cooperative. SKIN: Warm and dry. Ecchymosis to face, especially chin and lower cheek area HEAD: Normocephalic. Halo in place. Pin sites intact. EYES: PERRLA ENT: No nasal bleeding or discharge. Mucous membranes pink and moist. NECK: Trachea midline. No JVD. CARDIOVASCULAR: Regular rate and rhythm. RESPIRATORY: No accessory muscle use. Lungs are clear to auscultation. Breath sounds equal bilaterally. No distress or dyspnea. GASTROINTESTINAL: BS + x 4 quads. Abdomen soft, non-tender, nondistended. MUSCULOSKELETAL: Extremities without cyanosis, or edema. + peripheral pulses x 4 extremities. Warm with good capillary refill and sensation. MAEW. NEUROLOGICAL: Awake and alert. Normal speech and pattern. Hospital Course [place]: This is a 76-year-old female who sustained a fall. She tripped and [place]. She landed face first. INJURIES: SAH RIGHT frontal lobe LEFT basal ganglia hemorrhage C1 hairline fx (R posterior arch) C2 fx w/ displacement (NO edema) EXTENSIVE facial bone fx (nasal, septum w/ hemorrhage into bilateral sinuses) The patient is now tolerating a po diet as recommended by ST. Eating and drinking well. Pain is being managed well with PO pain medications,all hospital medications will continue at rehab. Pt is having regular bowel movements, and have recommended to patient to continue with stool softeners while taking narcotic pain medications to prevent constipation. Pt has been participating in PT and OT while admitted at [place] and has been ambulating with their assistance and independently . PT and OT will continue at [facility]. All follow up appointments have been provided and discussed with the patient. It is recommended that the patient keeps all his follow up appointments for continued recovery. Therefore, the patient is stable to be safely discharged to [facility] rehab from a trauma surgery standpoint. Thank you for allowing us to participate in her care. We wish Eladia the best in her recovery. - Right subarachnoid hemorrhage - Left basal ganglia hemorrhage Neurosurgery consulted and assisting with care and management Serial neuro checks Pain control - tramadol po PT and OT ordered Speech therapy - Pureed with pudding thick. Keppra changed to po - C1 hairline fracture - C2 fracture with displacement s/p 11/05: HALO PLACEMENT. Closed reduction and interna; fixation w/ manipulation of C2 fx. Pain care per protocol PT and OT ordered Pain control - tramadol po [facility] - she is accepted for admission. - Extensive facial fractures OMFS is consulted and assisting in management and care No surgical management needed at this time Maintain sinus precautions. Follow-up on an outpatient basis Pt Condition on Discharge: Stable Discharge Disposition: Rehab Inpatient Discharge Instructions DIET: Follow Instructions for: As Tolerated, No Restrictions Speech Therapy-Diet Recommends: Pureed Activities you can perform: Regular-No Restrictions Activities to Avoid: Driving for 24 hrs, Concussion Sports, Contact Sports, Lifting/Bending, Strenuous Activity Remarks patient seen and examined with INVOICE CHECKER-agree with assessment and plan stable overall BP controlled dc to rehab Angelia Dacosta November 07, 2016 12:22 Kay Mello MD November 07, 2016 17:29
[2016-11-07 12:26] VITALS: O2SAT 93
[2016-11-07 12:49] VITALS: BP 162/82; PULSE 88; RESP 18; TEMP 98.1; O2SAT 91
[2016-11-14] MEDS ORDERED: WHEEMIS3 (12:14)
[2016-11-14] MEDS ORDERED: COMMODE 3-IN-11 MIS (12:14)
[2016-11-18] MEDS ORDERED: RAMI10CA PO (08:49)
[2016-11-18] MEDS ORDERED: SODI1TAB PO (08:49)
[2016-11-18] MEDS ORDERED: ULTR50TA5 PO (08:49)
[2016-11-18] MEDS ORDERED: MELA1TAB22 PO (08:49)
[2016-11-18] MEDS ORDERED: ASPI81CH3 CHEW (08:49)
[2016-11-18] MEDS ORDERED: VITA100064 PO (08:49)
[2016-11-18] MEDS ORDERED: LEXA10TA PO (08:49)
[2016-11-18] MEDS ORDERED: PRESCAP5 PO (08:49)
[2016-11-18] MEDS ORDERED: DOCU1CAP39 PO (08:49)
[2016-11-18] MEDS ORDERED: FAMO20TA2 PO (08:49)
[2016-11-18] MEDS ORDERED: LEVO100T5 PO (08:49)
[2016-11-18] MEDS ORDERED: BACL10TA PO (09:16)
== END 2016-11-07 13:31 | DRG 518 ==
LOC: NEPD 14:04 → NEDA 15:54 → N03B 18:40 → N05B 11-06 15:12
PROVIDERS: ADMIT Surgery; ATTEND Surgery
PROC: 0PS304Z Reposition Cervical Vertebra with Internal Fixation Device, Open Approach (ICD-10-PCS; principal; 2016-11-05)
PROC: 2W60X0Z Traction of Head using Traction Apparatus (ICD-10-PCS; 2016-11-05)
DX: S12.110A Anterior displaced Type II dens fracture, initial encounter for closed fracture (principal); S06.6X0A Traumatic subarachnoid hemorrhage without loss of consciousness, initial encounter; I10 Essential (primary) hypertension; S02.40DA Maxillary fracture, left side, initial encounter for closed fracture; S02.40CA Maxillary fracture, right side, initial encounter for closed fracture; E03.9 Hypothyroidism, unspecified; R60.9 Edema, unspecified; S02.2XXA Fracture of nasal bones, initial encounter for closed fracture; W01.198A Fall on same level from slipping, tripping and stumbling with subsequent striking against other object, initial encounter; Y92.838 Other recreation area as the place of occurrence of the external cause; Z86.711 Personal history of pulmonary embolism
CPT/HCPCS: 36600; 70450; 70486; 71010; 72020; 72125; 72141; 73060; 80048; 80053; 81001; 82805; 83735; 84100; 85025; 85610; 85730; 87641; 96372; 96374; 96375; C9113; J0461; J1953; J2270; J2405; J7030; J7040; J7050; L0150; L0172; L0810